=== PATIENT | female | born 1945 | race Caucasian/White ===

== ENCOUNTER → 2017-04-16 13:04 | Outpatient (CLI) | payer MEDICARE, SELFPAY ==
--- NOTE | 2017-04-16 10:15 | CT_ITS ---
STUDY: CT RIGHT SHOULDER REASON FOR EXAM: Female, 72 years old. Shoulder pain following a fall. RADIATION DOSAGE (If Supplied By Facility): CTDIvol = ( 24.58 ) mGy, DLP = ( 542.17 ) mGycm TECHNIQUE: The patient was scanned in a multi detector CT scanner. High resolution transaxial imaging was performed without the administration of intravenous contrast material. Sagittal and coronal images were reconstructed. Individualized dose optimization techniques were used for this CT. COMPARISON: None. FINDINGS: Normal glenohumeral articulation. There is evidence of an avulsion type fracture along the inferior medial aspect of the glenoid. The fracture is displaced medially and inferiorly. There is evidence of a 1.1 cm x 1.2 cm dense calcification in the surgical neck of the right humerus most likely representing a healed bone infarct or chondroid calcification. Normal coracoid process. Normal visualized lateral clavicle. Normal acromioclavicular articulation. There is a Type II morphology (curved), with a neutral orientation. Soft tissue swelling. CT/Coronals Sag Multi Obl 3-D Rec IMPRESSION: Avulsion fracture along the inferior medial aspect of the glenoid with medial and inferior displacement. Findings suggestive of a chondroid calcification or healed bone infarct in the surgical neck of the humerus. Electronically Signed: Kalin Zuluaga MD at 15:05 EST Tel [phone], Service support ,
--- NOTE | 2017-04-16 13:19 | CT_ITS ---
STUDY: CT RIGHT SHOULDER REASON FOR EXAM: Female, 72 years old. Shoulder pain following a fall. RADIATION DOSAGE (If Supplied By Facility): CTDIvol = ( 24.58 ) mGy, DLP = ( 542.17 ) mGycm TECHNIQUE: The patient was scanned in a multi detector CT scanner. High resolution transaxial imaging was performed without the administration of intravenous contrast material. Sagittal and coronal images were reconstructed. Individualized dose optimization techniques were used for this CT. COMPARISON: None. FINDINGS: Normal glenohumeral articulation. There is evidence of an avulsion type fracture along the inferior medial aspect of the glenoid. The fracture is displaced medially and inferiorly. There is evidence of a 1.1 cm x 1.2 cm dense calcification in the surgical neck of the right humerus most likely representing a healed bone infarct or chondroid calcification. Normal coracoid process. Normal visualized lateral clavicle. Normal acromioclavicular articulation. There is a Type II morphology (curved), with a neutral orientation. Soft tissue swelling. CT/Extremity Upper without Contra IMPRESSION: Avulsion fracture along the inferior medial aspect of the glenoid with medial and inferior displacement. Findings suggestive of a chondroid calcification or healed bone infarct in the surgical neck of the humerus. Electronically Signed: Kalin Zuluaga MD at 15:05 EST Tel [phone], Service support ,
== END ==
PROVIDERS: Family Provider Internal Medicine; PCP Internal Medicine; Visit Provider Physician Assistant Surgical
DX: S43.011A Anterior subluxation of right humerus, initial encounter (principal)
CPT/HCPCS: 73200; 76377

== ENCOUNTER 2017-04-19 07:18 | Day surgery (SDC) | payer MEDICARE, SELFPAY ==
--- NOTE | 2017-04-19 07:35 | EKG12_ITS ---
Test Reason : PRE OP Blood Pressure : / mmHG Vent. Rate : 067 BPM Atrial Rate : 067 BPM P-R Int : 178 ms QRS Dur : 086 ms QT Int : 424 ms P-R-T Axes : 053 -56 100 degrees QTc Int : 448 ms Normal sinus rhythm Left anterior fascicular block Left ventricular hypertrophy with repolarization abnormality Poor R wave progression Abnormal ECG Confirmed by CHARI WOODARD, JOSIE ([id number]), communications editor MADISON MAHER ([id number]) on 04/24/2017 2:53:31 PM Referred By: J LUIS Confirmed By:JOSIE MARCELINO MD
[2017-04-19 07:52] VITALS: BP 153/60; PULSE 68; RESP 14; TEMP 36.1; O2SAT 100; BMI 23.8
[2017-04-19 08:10] LABS: Anion Gap 7 (5-15); BUN 14 mg/dL (7-18); BUN/Creat Ratio 17.4 RATIO (10-20); Chloride 104 mmol/L (98-107); EST Glomerular Filtration Rate 75 mL/min (>60); Est Glom Filt Rate - Afr Amer 90 mL/min (>60); Estimated Creatinine Clearance 47.97 ml/min; Glucose 132 mg/dL (70-110); Sodium Level 140 mmol/L (136-145)
[2017-04-19] MEDS: Cefazolin 2 GM in 0.9% Normal Saline 100 ML IV (09:20)
--- NOTE | 2017-04-19 11:45 | PCM.DC.ORTHO ---
Discharge Diet: No Restrictions Discharge Activity: - - sling for comfort, may start pendulum exercises at home, remove sling several times daily in order to move elbow, wrist and hand. May shower in (days): 3 Ice area for (Minutes): 20 Call your doctor if your incision/area has: Continuous Slow Oozing, Sudden Increased Bleeding, Increased Pain/ Swelling, Increased Redness, Foul Smelling Discharge Call your doctor if you observe: Fever of 101 or Higher, Coldness, Increased Pain, Numbness or Tingling, Change in Color Suture Line Care: Avoid Pulling/Pushing Change Dressing in (Days):: 3 Remove Dressing in (days):: 3 Cleanse incision/area with: Soap & Water Allergies/Adverse Reactions: Allergies codeine Adverse Reaction (Verified 04/18/17 17:13) PASSED OUT fluoxetine [From Prozac] Adverse Reaction (Verified 04/18/17 17:13) Other prednisone Adverse Reaction (Verified 04/18/17 17:13) FREQ URINATION, INSOMNIA Medications to take at Discharge Ascorbic Acid/Ascorbate Sodium [Vitamin C 500 mg Wafer] 500 mg PO DAILY 04/18/17 Aspirin [Aspirin, Baby] 81 mg PO DAILY@0800 04/18/17 Calcium Carbonate/Vitamin D3 [Calcium 600 + Vit D Caplet] 1 each PO DAILY 04/18/17 Cholecalciferol (Vitamin D3) [Vitamin D3] 1,000 unit PO DAILY 04/18/17 Duloxetine Hcl [Cymbalta] 30 mg PO DAILY 04/18/17 Lisinopril/Hydrochlorothiazide [Zestoretic 20/12.5 Tablet] 1 tab PO DAILY 04/18/17 Multivit-Min/Iron/Folic/Lutein [Centrum Silver Women Tablet] 1 each PO DAILY 04/18/17 Potassium Chloride 20 meq PO DAILY 04/18/17 Simvastatin 20 mg PO QHS 04/18/17 Vitamin E 400 unit PO DAILY 04/18/17 Please Follow Up With: Bry Krause, When: as scheduled
--- NOTE | 2017-04-19 11:48 | DCINST_ITS ---
Discharge Diet: No Restrictions Discharge Activity: - - sling for comfort, may start pendulum exercises at home , remove sling several times daily in order to move elbow, wrist and hand. May shower in (days): 3 Ice area for (Minutes): 20 Call your doctor if your incision/area has: Continuous Slow Oozing, Sudden Increased Bleeding, Increased Pain/ Swelling, Increased Redness, Foul Smelling Discharge Call your doctor if you observe: Fever of 101 or Higher, Coldness, Increased Pain, Numbness or Tingling, Change in Color Suture Line Care: Avoid Pulling/Pushing Change Dressing in (Days):: 3 Remove Dressing in (days):: 3 Cleanse incision/area with: Soap & Water Allergies/Adverse Reactions: Allergies codeine Adverse Reaction (Verified 04/18/17 17:13) PASSED OUT fluoxetine [From Prozac] Adverse Reaction (Verified 04/18/17 17:13) Other prednisone Adverse Reaction (Verified 04/18/17 17:13) FREQ URINATION, INSOMNIA Medications to take at Discharge Ascorbic Acid/Ascorbate Sodium [Vitamin C 500 mg Wafer] 500 mg PO DAILY Aspirin [Aspirin, Baby] 81 mg PO DAILY@0800 04/18/17 Calcium Carbonate/Vitamin D3 [Calcium 600 + Vit D Caplet] 1 each PO DAILY Cholecalciferol (Vitamin D3) [Vitamin D3] 1,000 unit PO DAILY 04/18/17 Duloxetine Hcl [Cymbalta] 30 mg PO DAILY 04/18/17 Lisinopril/Hydrochlorothiazide [Zestoretic 20/12.5 Tablet] 1 tab PO DAILY Multivit-Min/Iron/Folic/Lutein [Centrum Silver Women Tablet] 1 each PO DAILY 04/04 Potassium Chloride 20 meq PO DAILY 04/18/17 Simvastatin 20 mg PO QHS 04/18/17 Vitamin E 400 unit PO DAILY 04/18/17 Please Follow Up With: Bry Krause, When: as scheduled
[2017-04-19 12:03] VITALS: BP 153/60; BP 157/92; PULSE 99; RESP 15; TEMP 36.1; O2SAT 97
--- NOTE | 2017-04-19 12:03 | OP.PCM_ITS ---
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 Surgery/Procedure Performed:: Diagnostic and operative arthroscopy of the right shoulder with attempted arthroscopic reduction with internal fixation of glenoid fracture followed by attempted anterior labral repair and excision of glenoid fragment and debridement of anterior labrum Description of Surgical Findings:: Fracture anterior inferior glenoid Type of Anesthesia:: General/Regional Anesthesiologist: Saumya Gtz Estimated Blood Loss (mL): 25 Fluids Replaced: See anesthesia report Description of Procedure: Implants Arthrex single loaded suture tacks ?4 Surgical indications please see history and physical dated 04/18/2017 Procedure description: Madelyn was greeted in the preoperative area her right shoulder was marked with surgical marker. Preoperative antibiotics were administered. She was then taken or [address] in stable condition. After adequate anesthesia was obtained and airway was secured she was placed in the lateral decubitus position with a beanbag and an axillary roll. Patient's arm was then prepped draped in usual sterile fashion all bony prominences were well- padded prior to the procedure. Surgical timeout was performed and surgery was commenced. Standard posterior viewing portal was made and 30? arthroscope was introduced into the glenohumeral joint. I made an anterior superior portal as well as a anterior portal just superior to the superior border of the subscapularis. 2 cannulas were placed in anteriorly and these portals. Arthroscopy was performed. This identified the patient had an avulsion off the anterior inferior aspect of the glenoid. This fragment was approximately 8 mm in width of the articular surface and approximately 2 cm in height. Is also of note the patient had severe cartilage loss in the posterior aspect of the humeral head this may be as a direct result of the injury and fall however this also may be primary glenohumeral joint osteoarthritis. This is grade 4 in nature and did cover large aspect of the surface area of the humeral head. Glenoid did have some type II changes superiorly and some type III chondral changes in the anterior aspect of the glenoid. I was able to identify the glenoid fracture and this was able to be manipulated and mobilized. I made a accessory posterior inferior portal. Initially I did attempt to percutaneously place a K wire in the anterior-inferior fragment in order to provisionally fixate this fragment. This was unsuccessful therefore I did attempt to repair this glenoid fragment with a soft tissue repair using labral anchors. I placed a single loaded labral anchor the inferior aspect of the fracture on the glenoid and the superior aspect of the fracture on the glenoid itself. A straight curved suture passer as well as a right angled suture passer was utilized in order to pass a limb of the suture anchor around the inferior border of the fractured fragment as well as the superior border of the fragment. Once this was complete I did tie the inferior suture anchor first unfortunately soft tissue as well as the bone would not hold this and this fixation failed. I then attempted to tie the superior suture tack and this also did not give adequate fixation of the fragment. Patient's bone quality was certainly a question and an issue. Did not feel that performing extensive open reduction internal fixation given the current state of the shoulder would be helpful long-term as the patient has significant cartilage loss and glenohumeral joint osteoarthritis. Given the fact that she will likely require future surgery in the form of adult reconstructive shoulder replacement I decided to remove the anterior-inferior fracture fragment. This was done with the intention of maintaining the soft tissue and performing a labral repair the anterior inferior aspect in order to provide stability. A periosteal elevator was then used to peel off the soft tissue off of the fragment and the fracture fragment was then removed. I then placed 2 additional suture anchors in the anterior aspects of the glenoid at the fracture site. Then used suture pressors once again to pass around the soft tissue of the labrum and even grab some inferior capsule as the patient really did not have any anterior capsule to speak of the could be used for a capsule raphe. The suture limbs were once again passed around the anterior capsule. The anterior inferior aspect of the labrum detached from the inferior portion of the glenoid as this is been tied in the suture anchor also pulled out of the bone of the glenoid. At this point it was determined that anterior labral repair would also be unsuccessful and the labrum was debrided in the field suture anchor was removed. At this point all instruments were removed the incision sites were closed and patient was placed in a sterile dressing and taken to recovery room. Postoperatively: Will initiate pendulum exercises and range of motion exercises immediately patient really has no restrictions other than because of the loss of the anterior inferior glenoid she may have some instability. If the patient remains unstable anteriorly she will require a reverse total shoulder arthroplasty. I will watch her progression closely over the next several weeks and if she has episodes of instability I will refer her to my partner Dr. Vegas for consultation for shoulder replacement surgery. I did discuss this with the patient's at length after the procedure - Admit VTE Documentation VTE Present on Admission: Yes VTE Mechan Device Prophylaxis: SCD's, Thigh High RUBÉN Hose VTE Pharm Prophylaxis ordered?: Yes
[2017-04-19 12:15] VITALS: BP 153/60; BP 159/82; PULSE 95; RESP 16; O2SAT 93
[2017-04-19] MEDS: Ketorolac 15 MG/ML Vial IV (12:25)
[2017-04-19 12:30] VITALS: BP 153/60; BP 176/95; PULSE 91; RESP 16; TEMP 36; O2SAT 96
[2017-04-19 13:47] VITALS: BP 148/88; BP 153/60; PULSE 90; RESP 18; TEMP 36.8; O2SAT 98
== END 2017-04-19 13:49 | disposition home or self-care (01) ==
LOC: SDC 07:19 → AC 07:20
PROVIDERS: Family Provider Internal Medicine; PCP Internal Medicine; Visit Provider Orthopaedic Surgery
PROC: (CPT 29805; principal; 2017-04-19 08:40)
DX: S42.141A Displaced fracture of glenoid cavity of scapula, right shoulder, initial encounter for closed fracture (principal); M19.011 Primary osteoarthritis, right shoulder; I10 Essential (primary) hypertension; E78.00 Pure hypercholesterolemia, unspecified; I34.1 Nonrheumatic mitral (valve) prolapse; F41.9 Anxiety disorder, unspecified; F32.9 Major depressive disorder, single episode, unspecified; W01.0XXA Fall on same level from slipping, tripping and stumbling without subsequent striking against object, initial encounter; Y93.89 Activity, other specified; Y92.008 Other place in unspecified non-institutional (private) residence as the place of occurrence of the external cause; Y99.8 Other external cause status; Z79.82 Long term (current) use of aspirin; Z79.899 Other long term (current) drug therapy
CPT/HCPCS: 01622; 29805; 36415; 80048; 93005; J7120; J2405

== ENCOUNTER 2017-07-02 08:00 | Outpatient (RCR) | payer MEDICARE, SELFPAY ==
--- NOTE | 2017-05-13 08:14 | HP.PTEVAL_ITS ---
Patient's Visit Information NICOLÁS MATIAS is a 72 year old F referred to Physical Therapy by DO DIVYA Alanis with a diagnosis of R displaced glenoid cavity of scapula. Date of Evaluation: 05/09/17 Physical Therapist: Bry Daniels - Visit Plan Frequency: 2-3x /Week Duration: 4-6 Weeks Plan: Start with PROM progressing to AAROM as tolerated. No ER currently. May use modaltities as needed for pain control. Pt. to follow up with physician next week. - Subjective Subjective: Pt. is here today for her initial evaluation with diagnosis of R displaced glenoid cavity of scapula. Pt. fell, tripped over rolls of carpet in home. Pt. went to ER and they did not see fx and was recommended to follow up with ortho if not improving. Pt. follow up with physician and saw displaced fx. Surgery attempted to repair with pinning then attempted to repair labrum, but from what pt. reports were unsuccessful, DOS 04/19/17. Pt. has now been referred to new physician to determine best course of action. In the mean time pt. was referred to PT from ROM, but to avoid ER. Pt. was in sling for comfort, but reports being out of sling most of time at home. Pt. tends to hold arm in gaurded positioning away. Pt. reports having increased pain with all attempts of moving arm, sleeping is difficult, has to slee p proped up. Pt. denies N/T, but does have distal pain down are at times. Pt. is hopeful to increase ROM and get back to workingout again. Pt. reports living a very healthy lifestyle and very active. - Pain R shoulder Pain Intensity (Out of 10): 3 Pain Intensity Range: 1, 6 - Objective POSTURE: Pt. has normal AC joint hieghts. Pt. tends to keep R UE in gaurded positioning at all times. Pt. supports RUE with L. POSTURE: Pt. has well healing incision no signs of infection or redness. Pt has slight rounded shoulders R worse than L. Pt. has increased tenderness to R UT most likely due to compensation. NEUROLOGICAL:Pt. has normal sensation to light and sharp touch throughout bilateral LEs. Pt. has 2+ biceps and triceps DTR bilat. ROM: L shoulder- flexion 180deg, abd 180deg, ext 50deg, functional ER C6, functional IR L1. R shoulder- PROM- flexion 125deg, abd 120deg, scaption 135deg. MMT- LUE - wrist/elbow 5/5 throughout; shoulder- flexion 5/5, abd 5/5, ext 5/5, ER 5/5, IR 5/5. RUE- wrist 5/5 throughotu; elbow- flexon 4+/5, ext 4+/5; shoulder not tested. - Goals Goal 1:: Pt. to be I with HEP. Goal Time Frame: 4-6 Weeks Goal 2:: Pt. to have full PROM of R shoulder into flexion, scaption and abduction allowing for increased tolerance with all functional mobility. Goal Time Frame: 4-6 Weeks Goal 3:: Pt. to sleep throughout the night with 0-2/10 pain in R shoulder allowing for increased quality of life. Goal Time Frame: 4-6 Weeks Goal 4:: Pt. to be able to complete all UB dressing without increase in R shoulder pain. Goal Time Frame: 4-6 Weeks - Rehabilitation Potential Physical Therapy Diagnosis: Pt. has signs and symptoms consistent with R shoulder hypomobility and weakness status post R shoulder fx. Pt. would benefit from PT to increase ROM as tolerated. Pt. is to follow up with new physician next week so POC may change if alternate proccedures are recommended. Rehabilitation Potential: Fair - Anticipated Interventions Patient/Client Instruction: Educate patient on: Condition, Plan of Care, Risk Factors, Benefits of Fitness Program For the Purpose of:: To improve safety, To improve health and function, To foster healthy habits, To improve decision making, To facilitate caregiver knowledge, To improve self management, To prevent re-injury, To improve ability to perform tasks related to life management, To improve tolerance to ADL's Therapeutic Exercise to Include: Postural training, Flexibilty training, Passive ROM, Active ROM For the Purpose of:: To decrease pain, To increase ROM, To improve nutrient delivery to tissue, To improve health of tissue, To decrease soft tissue restriction, To increase flexibility/ROM Manual Therapy Techniques to Include: Passive ROM, Soft tissue mobilization For the Purpose of:: To decrease pain, To increase ROM, To improve nutrient delivery to tissue, To improve health of tissue, To decrease soft tissue restriction, To increase flexibility/ROM IF ES: Yes Cryotherapy (ice pack, ice massage): Yes For the Purpose of:: To decrease pain, To decrease swelling/inflammation, To increase ROM Thank you for the opportunity to evaluate your patient. For Medicare and Medicare HMO plans, please review the plan of care and approve it. It will need to be FAXED BACK to us at [phone] for Medicare purposes. Please let me know if there are questions or concerns regarding this plan of care. Physician Signature: Date:
--- NOTE | 2017-07-02 13:03 | HP.PTREVAL_ITS ---
Bry Krause, DO, It has been my pleasure to treat NICOLÁS MATIAS over the last 15 visits for R displaced glenoid cavity of scapula. Please see the progress note below for an update on the physical therapy plan of care! Subjective: Pt. reports I am doing okay, as long as I do not move it. Pt. reports beign compliant with exercises at home. Pt. reports continued difficulty with lifting her arm above shoulder height. Pt. has difficulty with upper body dressing, ADLs and driving. Objective/Function: PROM- flexion 155deg, abd 140deg, ext 40deg, ER at 90deg 25deg, IR at 90deg 30deg. Pt. has increased pain at all end ranges of motion. AROM- flexion 88deg, abd 69deg, functional ER external auditory meatus, functional IR L5. Pt. continues to have marked pain with all motions, expecially with rotation and overhead. Pt. had tightness throughout all PROM ranges. Pt. has no N/T, but continues to have difficulty with sleeping and most functional mobility with her R UE. Plan Plan: Pt. to follow up with physician and determine best course of action. Goals Goal 1:: Pt. to be I with HEP. Goal Time Frame: 4-6 Weeks Goal Progress: Goal Met Goal 2:: Pt. to have full PROM of R shoulder into flexion, scaption and abduction allowing for increased tolerance with all functional mobility. Goal Time Frame: 4-6 Weeks Goal Progress: Progressing Goal 3:: Pt. to sleep throughout the night with 0-2/10 pain in R shoulder allowing for increased quality of life. Goal Time Frame: 4-6 Weeks Goal Progress: Progressing Goal 4:: Pt. to be able to complete all UB dressing without increase in R shoulder pain. Goal Time Frame: 4-6 Weeks Goal Progress: Progressing Anticipated Interventions Patient/Client Instruction: Educate patient on: Condition, Plan of Care, Risk Factors, Benefits of Fitness Program For the Purpose of:: To improve safety, To improve health and function, To foster healthy habits, To improve decision making, To facilitate caregiver knowledge, To improve self management, To prevent re-injury, To improve ability to perform tasks related to life management, To improve tolerance to ADL's Therapeutic Exercise to Include: Postural training, Flexibilty training, Passive ROM, Active ROM For the Purpose of:: To decrease pain, To increase ROM, To improve nutrient delivery to tissue, To improve health of tissue, To decrease soft tissue restriction, To increase flexibility/ROM Manual Therapy Techniques to Include: Passive ROM, Soft tissue mobilization For the Purpose of:: To decrease pain, To increase ROM, To improve nutrient delivery to tissue, To improve health of tissue, To decrease soft tissue restriction, To increase flexibility/ROM IF ES: Yes Cryotherapy (ice pack, ice massage): Yes For the Purpose of:: To decrease pain, To decrease swelling/inflammation, To increase ROM Please do not hesitate to contact me at [phone] by phone or Fax: if you have questions or concerns regarding this new plan of care! Sincerely, Bry Daniels
--- NOTE | 2017-07-15 13:36 | HP.PT.NRP ---
HP - Discharge Summary (1) - Patient Information NICOLÁS MATIAS was seen in my office for initial evaluation on 05/09/17. The following Plan of Care was established for this patient: Initial Frequency: 2-3x /Week Initial Duration: 4-6 Weeks - Anticipated Interventions Patient/Client Instruction: Educate patient on: Condition, Plan of Care, Risk Factors, Benefits of Fitness Program For the Purpose of:: To improve safety, To improve health and function, To foster healthy habits, To improve decision making, To facilitate caregiver knowledge, To improve self management, To prevent re-injury, To improve ability to perform tasks related to life management, To improve tolerance to ADL's Therapeutic Exercise to Include: Postural training, Flexibilty training, Passive ROM, Active ROM For the Purpose of:: To decrease pain, To increase ROM, To improve nutrient delivery to tissue, To improve health of tissue, To decrease soft tissue restriction, To increase flexibility/ROM Manual Therapy Techniques to Include: Passive ROM, Soft tissue mobilization For the Purpose of:: To decrease pain, To increase ROM, To improve nutrient delivery to tissue, To improve health of tissue, To decrease soft tissue restriction, To increase flexibility/ROM IF ES: Yes Cryotherapy (ice pack, ice massage): Yes For the Purpose of:: To decrease pain, To decrease swelling/inflammation, To increase ROM This patient was last seen in our office 07/02/17. Pertinent comments regarding their Physical therapy will appear below: Pt. was seen for her R shoulder pain after mechanical fall. I talked with patient today and is now scheduled to have R TSA next month. Pt. will be DC from PT at this point in time. At this point I will be discontinuing this patient from physical therapy. I would be happy to see this patient again in the future if found appropriate by the physician. Thank you! Bry Daniels
== END 2017-07-02 19:00 | disposition home or self-care (01) ==
LOC: PT 08:00
PROVIDERS: Family Provider Internal Medicine; PCP Internal Medicine; Visit Provider Orthopaedic Surgery
DX: S42.141D Displaced fracture of glenoid cavity of scapula, right shoulder, subsequent encounter for fracture with routine healing (principal); M19.011 Primary osteoarthritis, right shoulder; S46.011D Strain of muscle(s) and tendon(s) of the rotator cuff of right shoulder, subsequent encounter
CPT/HCPCS: 97110; 97140; 97161

== ENCOUNTER 2017-08-14 05:49 | Inpatient (IN) | payer MEDICARE, SELFPAY ==
[2017-07-31 11:18] VITALS: BP 115/71; PULSE 63; RESP 17; TEMP 36.9; O2SAT 97; BMI 23.8
[2017-07-31 12:08] LABS: Absolute Lymphocyte Count 1.79 X10^3/ul (0.83-4.51); Absolute Neutrophil Count 4.3 X10^3/uL (2.0-7.7); Basophil# 0.01 X10^3/uL; Basophil% 0.2 % (0-1); Eosinophil# 0.05 X10^3/uL; Eosinophils% 0.8 % (0-5); Hematocrit 34.2 % (37-47); Lymphocyte # 1.79 X10^3/ul (4.0); Lymphocyte % 27.1 % (19-41); Mean Corp Hgb Conc 35.1 g/gl (32-36); Mean Corpuscular Hgb 33.9 pg (27.0-32.0); Mean Corpuscular Volume 96.6 fL (81-99); Mean Platelet Vol. 10.7 fl (6.2-12.0); Monocyte# 0.45 X10^3/uL; Monocyte% 6.8 % (0-10); Neutrophil # 4.29 X10^3/uL (2.7-7.7); Neutrophil % 64.9 % (47-70); POSITIVE COUNT NO; POSITIVE DIFFERENTIAL NO; POSITIVE MORPHOLOGY NO; Platelet Count 249 K/mm3 (150-450); RBC Distribution Width CV 12.2 % (11.6-14.6); RBC Distribution Width SD 41.4 fl (35.1-43.9); Red Blood Count 3.54 M/mm3 (4.2-5.4); White Blood Count 6.6 K/mm3 (4.4-11.0)
[2017-07-31 12:32] LABS: Anion Gap 7 (5-15); BUN 13 mg/dL (7-18); Chloride 104 mmol/L (98-107); Creatinine, Serum 0.65 mg/dL (0.55-1.02); EST Glomerular Filtration Rate 95 mL/min (>60); Est Glom Filt Rate - Afr Amer 115 mL/min (>60); Estimated Creatinine Clearance 38.37 ml/min; Glucose 97 mg/dL (74-106); Potassium 3.6 mmol/L (3.5-5.1); Sodium Level 141 mmol/L (136-145)
--- NOTE | 2017-08-01 13:25 | PCM.HP.BLA ---
History and Physical DATE OF SURGERY: 08/14/2017 SCHEDULED PROCEDURE: RIGHT REVERSE TOTAL SHOULDER ARTHROPLASTY HISTORY OF PRESENT ILLNESS: This is a 72-year-old female who is been having right shoulder problem since March 2017. Patient on April 13, 2017 tripped and fell in the garage landing on her right shoulder. Patient was initially seen in the urgent care and referred for orthopedic evaluation. X-rays at that time revealed an inferior glenoid bony Bankart fracture with subluxed right shoulder. Patient underwent a diagnostic and operative arthroscopy of right shoulder with attempted reduction with internal fixation of glenoid fracture followed by attempted anterior labral repair and excision of glenoid fragment and debridement of anterior labrum. Surgery took place on April 19, 2017. Patient has been involved in formal physical therapy and continued to have difficulty with motion. She has not seen any significant relief. She continues to have increased pain in her dominant right shoulder. MRI of the right shoulder was obtained postoperatively. After failing conservative measures and discussing all treatment options with Dr. Guanaco Vegas, the patient would like to proceed with a right reverse total shoulder arthroplasty. Patient currently denies any chest pain, shortness of breath, fevers chills, recent infections. Patient has medical history pertinent for hypertension. REVIEW OF SYSTEMS: ROS: Const: Denies change in appetite, fever,or weight change. CV: Denies chest pain, heart murmur and irregular heartbeat. Resp: Denies cough, pneumonia, SOB, tuberculosis and wheezing. GI: Denies constipation, diarrhea, difficulty swallowing, heartburn, nausea, bloody stools and vomiting. : . (F Genital Sx) Urinary: denies incontinence. Musculo: Denies leg swelling, limp, trouble walking and weakness. Skin: Denies Raynaud's, history of shingles and tattoo. Neuro: Denies ambulatory dysfunction, dizziness, numbness/tingling and tremor. Psych: Reports anxiety, but denies insomnia and stress. Natanael/Lymph: Denies anemia, bleeding/bruising tendency and past transfusion. Reviewed, no changes. PAST MEDICAL HISTORY: Advance Care Plan: Other Directive, POA Effective Date: 04/15/2017 Other Directive, LIVING WILL Effective Date: 04/15/2017 PMH: Medical Problems: High Blood Pressure, Hypercholesterolemia, Osteoporosis Accidents: None Surgical Hx: Gallbladder RT Shoulder ORIF - (04/19/2017) [email or web address] Anesthesia Complications: None Assistive Devices: Glasses Reviewed and updated. SOCIAL HISTORY: SH: Marital: .Occupation: Retired.Work Status: Retired.Hand Dominance: Right-handed. Personal Habits: Cigarette Use: Never Smoked Cigarettes.Alcohol: Occasionally.Drug Use: Denies Use.Enjoy Exercising: Never Exercises. Reviewed, no changes. VITALS: Ht: 61 Wt: 124lb Wt k.246 BMI: 23.4 BP: 100/60 Pulse: 62 Resp: 16 T: 98.0 T: 36.7C ALLERGIES: Prozac Codeine MEDICATIONS: Aspirin 81 mg 1po qday, Potassium 20 Meq 1 tab PO daily, Simvastatin 20 mg 1po qday, Vitamin C 500 mg 1po qday, Vitamin E 500 Units 1po qday, Lisinopril-Hydrochlorothiazide 20-12.5 mg 1 by mouth every day, Tinactin 1 % apply to affected area twice daily, Cymbalta 30 mg 1 by mouth every day, Flonase Allergy Relief 50 mcg/Act twice a day, Calcium Carbonate 600 mg one PO daily PRE-OP EXAM: General appearance:NORMAL Other: Eyes: Conjunctivae and lids: NORMAL Pupils: ERR Ears, Nose, Mouth, and Throat: NORMAL Other: Inspection of lips, teeth and gums: NORMAL Other: Neck: Examination of neck: no masses noted. Respiratory: Assessment of respiratory effort: NORMAL Other: Auscultation of lungs: clear to auscultation no wheezes, rhonchi or rales. Cardiovascular: Auscultation of heart: regular rate and rhythm, no murmurs, gallops or rubs. Exam of carotid arteries: NORMAL Other: Gastrointestinal: Exam of abdomen: soft, nontender, nondistended bowel sounds present. PHYSICAL EXAMINATION: Examination of the right shoulder reveals previous incisions well-healed without erythema or signs of infection. Patient has passive forward elevation of 50?. Internal rotation to trochanter, external rotation to 25?. Patient does have active deltoid function. Axillary sensation is intact. IMAGING STUDIES: MRI of the right shoulder was obtained on July 16, 2017 which shows regions of interstitial and articular surface partial thickness tearing up to 25% dept involving the mid to distal supraspinatus. Impaction fracture deformity and Hill-Sachs impaction with contusion deformity of as well as anterior inferior labral tearing and maceration. . IMPRESSION: 1. Previous dislocation with bony Bankart fracture with previous arthroscopic surgery 2. Hypertension 3. Hypercholesterolemia 4. Osteoporosis PLAN: Dr. Vegas did discuss and review with the patient all treatment options including surgical versus nonsurgical. Patient wishes to proceed with above-stated procedure. Potential risks, benefits, and complications of this procedure were discussed in detail including but not limited to , infection, nerve and blood vessel damage, persistent pain, numbness, tingling, paresthesias, blood clot, pulmonary embolism, and requirement for further surgery. The patient expressed full understanding has no further questions for the doctor. Patient does agree to proceed with the above-stated procedure and has signed the surgery consent form. We are obtaining surgical clearance from patient's primary care physician. ___ I have re-examined the patient. There are no clinical changes since date of exam. ___ See progress notes for changes. ___ Dictated on admission Date: Time: Signature:
--- NOTE | 2017-08-01 13:41 | HP.PCM_ITS ---
History and Physical DATE OF SURGERY: 08/14/2017 SCHEDULED PROCEDURE: RIGHT REVERSE TOTAL SHOULDER ARTHROPLASTY HISTORY OF PRESENT ILLNESS: This is a 72-year-old female who is been having right shoulder problem since March 2017. Patient on April 13, 2017 tripped and fell in the garage landing on her right shoulder. Patient was initially seen in the urgent care and referred for orthopedic evaluation. X-rays at that time revealed an inferior glenoid bony Bankart fracture with subluxed right shoulder. Patient underwent a diagnostic and operative arthroscopy of right shoulder with attempted reduction with internal fixation of glenoid fracture followed by attempted anterior labral repair and excision of glenoid fragment and debridement of anterior labrum. Surgery took place on April 19, 2017. Patient has been involved in formal physical therapy and continued to have difficulty with motion. She has not seen any significant relief. She continues to have increased pain in her dominant right shoulder. MRI of the right shoulder was obtained postoperatively. After failing conservative measures and discussing all treatment options with Dr. Guanaco Vegas, the patient would like to proceed with a right reverse total shoulder arthroplasty. Patient currently denies any chest pain, shortness of breath, fevers chills, recent infections. Patient has medical history pertinent for hypertension. REVIEW OF SYSTEMS: ROS: Const: Denies change in appetite, fever,or weight change. CV: Denies chest pain, heart murmur and irregular heartbeat. Resp: Denies cough, pneumonia, SOB, tuberculosis and wheezing. GI: Denies constipation, diarrhea, difficulty swallowing, heartburn, nausea, bloody stools and vomiting. : . (F Genital Sx) Urinary: denies incontinence. Musculo: Denies leg swelling, limp, trouble walking and weakness. Skin: Denies Raynaud's, history of shingles and tattoo. Neuro: Denies ambulatory dysfunction, dizziness, numbness/tingling and tremor. Psych: Reports anxiety, but denies insomnia and stress. Natanael/Lymph: Denies anemia, bleeding/bruising tendency and past transfusion. Reviewed, no changes. PAST MEDICAL HISTORY: Advance Care Plan: Other Directive, POA Effective Date: 04/15/2017 Other Directive, LIVING WILL Effective Date: 04/15/2017 PMH: Medical Problems: High Blood Pressure, Hypercholesterolemia, Osteoporosis Accidents: None Surgical Hx: Gallbladder RT Shoulder ORIF - (04/19/2017) [email or web address] Removed Anesthesia Complications: None Assistive Devices: Glasses Reviewed and updated. SOCIAL HISTORY: SH: Marital: .Occupation: Retired.Work Status: Retired.Hand Dominance: Right- handed. Personal Habits: Cigarette Use: Never Smoked Cigarettes.Alcohol: Occasionally.Drug Use: Denies Use.Enjoy Exercising: Never Exercises. Reviewed, no changes. VITALS: Ht: 61 Wt: 124lb Wt k.246 BMI: 23.4 BP: 100/60 Pulse: 62 Resp: 16 T: 98.0 T: 36.7C ALLERGIES: Prozac Codeine MEDICATIONS: Aspirin 81 mg 1po qday, Potassium 20 Meq 1 tab PO daily, Simvastatin 20 mg 1po qday, Vitamin C 500 mg 1po qday, Vitamin E 500 Units 1po qday, Lisinopril- Hydrochlorothiazide 20-12.5 mg 1 by mouth every day, Tinactin 1 % apply to affected area twice daily, Cymbalta 30 mg 1 by mouth every day, Flonase Allergy Relief 50 mcg/Act twice a day, Calcium Carbonate 600 mg one PO daily PRE-OP EXAM: General appearance:NORMAL Other: Eyes: Conjunctivae and lids: NORMAL Pupils: ERR Ears, Nose, Mouth, and Throat: NORMAL Other: Inspection of lips, teeth and gums: NORMAL Other: Neck: Examination of neck: no masses noted. Respiratory: Assessment of respiratory effort: NORMAL Other: Auscultation of lungs: clear to auscultation no wheezes, rhonchi or rales. Cardiovascular: Auscultation of heart: regular rate and rhythm, no murmurs, gallops or rubs. Exam of carotid arteries: NORMAL Other: Gastrointestinal: Exam of abdomen: soft, nontender, nondistended bowel sounds present. PHYSICAL EXAMINATION: Examination of the right shoulder reveals previous incisions well-healed without erythema or signs of infection. Patient has passive forward elevation of 50?. Internal rotation to trochanter, external rotation to 25?. Patient does have active deltoid function. Axillary sensation is intact. IMAGING STUDIES: MRI of the right shoulder was obtained on July 16, 2017 which shows regions of interstitial and articular surface partial thickness tearing up to 25% dept involving the mid to distal supraspinatus. Impaction fracture deformity and Hill-Sachs impaction with contusion deformity of as well as anterior inferior labral tearing and maceration. . IMPRESSION: 1. Previous dislocation with bony Bankart fracture with previous arthroscopic surgery 2. Hypertension 3. Hypercholesterolemia 4. Osteoporosis PLAN: Dr. Vegas did discuss and review with the patient all treatment options including surgical versus nonsurgical. Patient wishes to proceed with above- stated procedure. Potential risks, benefits, and complications of this procedure were discussed in detail including but not limited to , infection , nerve and blood vessel damage, persistent pain, numbness, tingling, paresthesias, blood clot, pulmonary embolism, and requirement for further surgery. The patient expressed full understanding has no further questions for the doctor. Patient does agree to proceed with the above-stated procedure and has signed the surgery consent form. We are obtaining surgical clearance from patient's primary care physician. ___ I have re-examined the patient. There are no clinical changes since date of exam. ___ See progress notes for changes. ___ Dictated on admission Date: Time: Signature:
[2017-08-14] VITALS (9 sets, daily range): BP systolic 137–170; BP diastolic 50–82; PULSE 45–97; RESP 16–18; TEMP 36.2–37; O2SAT 96–99; BMI 23.8
[2017-08-14] MEDS: Celecoxib 200 MG Capsule 400 MG PO (06:35)
[2017-08-14] MEDS: Acetaminophen 500 MG Tablet 1000 MG PO ×2 (06:35→21:25)
[2017-08-14] MEDS: oxyCODONE HCl Cr 10 MG Tablet PO (06:35)
[2017-08-14] MEDS: Cefazolin 2 GM in 0.9% Normal Saline 100 ML IV (08:05)
--- NOTE | 2017-08-14 09:13 | PCM.OPRPT ---
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 Surgery/Procedure Performed:: Right reverse total shoulder replacement Description of Surgical Findings:: Stable shoulder with good tensioning There was 20% loss of anterior inferior glenoid, with anterior-inferior glenoid wear and complete cartilage erosion about the anterior inferior glenoid and humeral head funeral director/embalmer/owner: Crystal Thornton Type of Anesthesia:: General Anesthesiologist: Rafael Collado Special Medications: 2 g Ancef, 1 g TXA at incision, 1 g TXA closure, 10 mg Decadron, joint cocktail (5 mg Duramorph, 30 mL of 0.5% Ropivicaine, 1000 units of epinephrine, 30 mg of Toradol) 1 g vancomycin Specimen's removed: Bony cuts Estimated Blood Loss (mL): 150 Fluids Replaced: 1000 milliliters crystalloid Description of Procedure: Components used 1. Equinox glenoid baseplate from [employer] for reverse TSA 2. Equinox 36mm Glenosphere 3. Equinox 36mm, 0mm humeral liner 4. Equinox reverse TSA humeral adapter tray 0mm 5. Equinox humeral stem primary press-fit preserve 10 mm size Brief history/Operative indications: 72 yo f with history of right shoulder instability with large bony Bankart. Patient had a failed arthroscopic repair the bony Bankart. She remained unstable with progression of osteoarthritis and shoulder pain. Patient failed conservative measures as mentioned in the H&P. After discussion of risk and benefits of reverse total shoulder replacement including but not limited to blood loss, DVTs, PEs, nerve vessel damage, infection, general risk of anesthesia including loss of life, instability and stiffness patient demonstrating understanding wish to proceed was able to sign informed consent. Medical clearance was obtained. Procedure: On the date of the procedure, patient's R upper extremity was marked in the preoperative area. Patient was taken back to the operating room where they were placed on the table in the supine position. Anesthesia assumed control of the C-spine and airway, then administered anesthetic. All bony prominences were identified well-padded, the head was secured and the patient was placed in the beachchair position at about 35? inclination. Anesthesia remained in control of the C-spine airway throughout the remainder of the procedure. Patient was then appropriately fastened to the table and the R upper extremity was prepped in a sterile fashion. The surgeons then scrubbed. Upon reentering the room, the R upper extremity was draped in a sterile fashion and the incision was marked out. Timeout was called, everyone agreed upon the side, the site, the procedure to be performed, patient identity and antibiotics given. Incision was taken down through skin and subcutaneous tissue, fat down to fascia. The stripe of the deltopectoral interval and cephalic vein were identified and blunt dissection was used to retract the deltoid. The cephalic vein was retracted laterally. Clavipectoral fascia was then incised and a cobra retractor was placed in the wound. The proximal one third of the pectoralis major insertion was released. Pectoralis tendon insertion was used to tenodesed the biceps tendon which was identified in the bicipital groove. Tenodesis was done with #1 Vicryl. Proximally we followed the biceps tendon after transecting it into the rotator interval. The rotator interval was split and the arm was externally rotated. The split was 1 cm medial to the bicipital groove. Subscapularis tendon was released. We released down the anterior portion of the humeral head and a evans elevator was used to release the inferior portion of the humeral head. The arm was externally rotated and the shoulder was dislocated. The [employer] humeral head cutting guide was used to make humeral cut. This was done at 20? retroversion. Once his humeral head cut was made humerus was retracted out of the way and the glenoid was exposed. After exposing the glenoid, the labrum and the remaining proximal biceps were debrided. At this time we are able to view the entire outer edge of the glenoid. A central pin was placed we sequentially reamed over this central pin to 36mm. Once this was completed the central pedicle was drilled. The glenoid baseplate was impacted into place. Wound was closely irrigated out with normal saline we then drilled sequentially for 4 screws. Screws were placed superiorly and inferiorly and tightened down the screws. Then anteriorly and posteriorly. Once the screws were appropriately tightened into place the glenoid baseplate was compressed against the exposed subchondral bone. Locking caps were placed and a 36mm glenosphere was impacted into place engaging the Contreras taper. The central screw was then tightened into place. Attention was then turned towards the humerus. The humerus was again externally rotated exposing the proximal portion of the humerus. Central canal finder was then used to open up the canal. We then broached to a 10mm stem. We trialed the 0mm liner, with the 0mm humeral baseplate. We obtained an adequate reduction at this time with a nice stable shoulder. Good internal rotation to the gluteus, forward elevation to 140?, external rotation to 20?. Final components were then assembled on the back table, trials were removed and the wound was copiously irrigated with normal saline after dislocating the shoulder. Once the final components were assembled they were impacted into place. Shoulder was then reduced and found to be stable with good range of motion. Subscapularis tendon was not repairable. The wound was then copiously irrigated out with a 1 L normal saline lavage. The deltopectoral fascia was then closed using #1 Vicryl skin was closed using 2-0 Vicryl interrupted sutures and final skin closure was done with 3-0 Monocryl. Steri-Strips are placed for final skin closure. Sterile dressing was placed patient was then placed in a sling and awakened by anesthesia. Patient was then transferred to the PACU for recovery. Postoperative plan: Patient will be admitted to the hospital overnight. They will get physical therapy starting in 2 weeks with normal postoperative regimen. Patient will be placed on 325 mg daily for DVT prophylaxis. The first postoperative appointment will be in 2 weeks for wound check and initiation of phase 1 physical therapy. Grafts/Implants Used: Equinox preserve stem - Complications None - Admit VTE Documentation VTE Present on Admission: No VTE Mechan Device Prophylaxis: SCD's VTE Pharm Prophylaxis ordered?: Yes
--- NOTE | 2017-08-14 09:47 | RAD_ITS ---
STUDY: X-RAY - RIGHT SHOULDER REASON FOR EXAM: Female, 72 years old. Total shoulder replacement TECHNIQUE: Single frontal view(s) of the shoulder. COMPARISON: None. FINDINGS: The patient is status post right reverse shoulder replacement. There is good alignment. Postoperative soft tissue changes. RAD/Shoulder One View IMPRESSION: Status post right reverse shoulder replacement. There is good alignment. Postoperative soft tissue changes. Electronically Signed: Kalin Zuluaga MD at 14:25 EDT Tel [phone], Service support ,
[2017-08-14] MEDS: Ondansetron 4 MG/2 ML Vial IV ×2 (11:01→19:27)
[2017-08-14] MEDS: 0.9% NaCl Peripheral Flush Adult/Peds IV (11:01)
[2017-08-14] MEDS: Cefazolin 1 GM/50 ML BAG IV (17:06)
[2017-08-14] MEDS: Miconazole Nitrate Cream 1 APPLIC TOPICAL (18:06)
[2017-08-14] MEDS: oxyCODONE 5 MG Tablet PO (21:24)
[2017-08-14] MEDS: DULoxetine Hcl 30 MG Capsule PO (21:25)
[2017-08-14] MEDS: Atorvastatin Calcium 10 MG Tablet PO (21:26)
[2017-08-15] MEDS: Cefazolin 1 GM/50 ML BAG IV (00:06)
[2017-08-15] MEDS: Ketorolac 15 MG/ML Vial IV ×2 (00:14→07:52)
[2017-08-15 02:32] VITALS: BP 135/53; PULSE 69; RESP 16; TEMP 36.9; O2SAT 97
[2017-08-15] MEDS: oxyCODONE 5 MG Tablet PO ×3 (02:41→14:50)
--- NOTE | 2017-08-15 06:34 | PN.ORTHO_ITS ---
Subjective: The patient was sitting in bed upon examination. Patient denies any chest pain , shortness of breath, dizziness, lightheadedness, nausea or vomiting, or calf pain. Pain is controlled on medications. No adverse overnight events. Patient did have some nausea yesterday but is improved today. Overall patient is doing well and plan is for discharge home today. Patient does have achiness/ soreness in the right shoulder but pain is been controlled. Objective: Dressing is C/D/I Ultra-sling fitting appropriately Sensation intact to axillary, radial, median, and ulnar distribution Motor intact to AIN, PIN, and ulnar nerve - Physical Exam General: Alert, Oriented x3, Cooperative, No apparent distress Vital Signs Temp Pulse Resp BP Pulse Ox 98.5 F 69 16 135/53 H 97 08/15/17 02:32 08/15/17 02:32 08/15/17 02:32 08/15/17 02:32 08/15/17 02:32 Oxygen Delivery Method Room Air Weight: 57.1 kg Body Mass Index (BMI) 23.8 Intake and Output for Last 24 Hours 08/13/17 08/14/17 08/15/17 23:59 23:59 23:59 Intake Total 1550 / 1550 850 / 850 Output Total 400 / 400 720 / 720 Balance 1150 / 1150 130 / 130 Medical Necessity - Tobacco Use Smoking Status: Never smoker Assessment/Plan 1. S/P right reverse total shoulder arthroplasty POD #1 2. Continue Pain Medications: Tylenol and OxyIR 3. DVT Prophylaxis: Aspirin 325 mg daily 4. PT/OT: Okay for elbow/wrist/hand and pendulum exercises. Otherwise patient will begin outpatient physical therapy after 2 week follow-up at [facility]. 5. Encouraged Incentive Spirometry 6. Disposition: Orthopedically stable, plan is for discharge home today. Prescriptions will be E scribed to [facility]. Patient will follow-up per postop instructions.
[2017-08-15] MEDS: Acetaminophen 500 MG Tablet 1000 MG PO ×2 (06:38→13:10)
--- NOTE | 2017-08-15 06:38 | PCM.DC.ORTHO ---
Discharge Diet: No Restrictions Discharge Activity: May Not Drive May shower in (days): 1 - Turned dressing away from water Ice area for (Minutes): 20 - Ice area for 20 minutes each hour while awake Weight Bearing Status: No weight bearing - Right upper extremity Keep extremity elevated above heart level: Operative Extremity Call your doctor if your incision/area has: Continuous Slow Oozing, Sudden Increased Bleeding, Increased Pain/ Swelling, Increased Redness, Foul Smelling Discharge Call your doctor if you observe: Fever of 101 or Higher, Coldness, Increased Pain, Numbness or Tingling, Change in Color Remove Dressing in (days):: 4 - Okay to remove dressing on August 19, 2017 Additional Instructions: Follow-up per [facility] postop instructions Do not take 81 mg aspirin while taking full dose 325 mg aspirin for the next 2 weeks Allergies/Adverse Reactions: Allergies codeine Adverse Reaction (Verified 07/31/17 11:08) PASSED OUT fluoxetine [From Prozac] Adverse Reaction (Verified 07/31/17 11:08) Other prednisone Adverse Reaction (Verified 07/31/17 11:08) FREQ URINATION, INSOMNIA Medications to take at Discharge Calcium Carbonate/Vitamin D3 [Calcium 600-Vit D3 400 Caplet] 1 ea PO DAILY 04/18/17 Cholecalciferol (Vitamin D3) [Vitamin D3] 1,000 unit PO DAILY 04/18/17 Duloxetine Hcl [Cymbalta] 30 mg PO QHS 04/18/17 Lisinopril/Hydrochlorothiazide [Zestoretic 20/12.5 Tablet] 1 tab PO DAILY 04/18/17 Multivit-Min/Iron/Folic/Lutein [Centrum Silver Women Tablet] 1 ea PO DAILY 04/18/17 Potassium Chloride 20 meq PO DAILY 04/18/17 Simvastatin 20 mg PO QHS 04/18/17 Vitamin E 400 unit PO DAILY 04/18/17 Ascorbic Acid [Vitamin C] 500 mg PO DAILY 07/31/17 Tolnaftate [Tinactin] 30 gm TP DAILY 07/31/17 Acetaminophen [Tylenol] 1,000 mg PO Q8 #90 tab 08/15/17 Aspirin 325 mg PO DAILY@0800 #14 tab 08/15/17 Famotidine [Pepcid] 20 mg PO DAILY #14 tab 08/15/17 Oxycodone [Oxyir] 5 - 10 mg PO Q4H PRN PRN 5 Days #60 tablet 08/15/17 The following prescriptions were given: Oxycodone [Oxyir] 5 - 10 mg PO Q4H PRN PRN 5 Days #60 tablet PRN Reason: Pain Acetaminophen [Tylenol] 1,000 mg PO Q8 #90 tab Aspirin 325 mg PO DAILY@0800 #14 tab Famotidine [Pepcid] 20 mg PO DAILY #14 tab Primary Care Physician: Susan Potter MD [Primary Care Provider] - Please Follow Up With: Guevara Armstrong PA-C When: 08/27/17 @ 9:15 am
[2017-08-15] MEDS: 0.9% NaCl Peripheral Flush Adult/Peds IV (07:53)
[2017-08-15 07:58] VITALS: BP 143/74; PULSE 70; RESP 18; TEMP 37.1; O2SAT 95
[2017-08-15] MEDS: Ascorbic Acid 500 MG Tablet PO (08:01)
[2017-08-15] MEDS: Famotidine 20 MG Tablet PO (08:01)
[2017-08-15] MEDS: Multivitamins,Ther W-Minerals Tablet 1 TABLET PO (08:01)
[2017-08-15] MEDS: Aspirin 325 MG Tablet PO (08:01)
[2017-08-15] MEDS: Calcium Carb/Vitamin D 1 TABLET Tablet PO (08:01)
[2017-08-15] MEDS: HYDROCHLOROTHIAZIDE 12.5 MG CAPSULE PO (08:02)
[2017-08-15] MEDS: Lisinopril 20 MG Tablet PO (08:02)
--- NOTE | 2017-08-15 10:30 | NURSING ---
pt c/o lightheadedness/dizziness when up to [facility] with therapy around 1030. Assisted back to bed safely in supine position. BP checked at 120/52. Pt feeling better once in bed.
--- NOTE | 2017-08-15 11:15 | CASEMGMT ---
[facility] Face to Face with patient for initial transition planning/care coordination assessment. RN CM introduced self and role at [facility]. Patient sitting in chair, alert and oriented. Patient willing to participate in assessment and is able to answer all questions appropriately. Care providers, pharmacy, and demographics verified. Patient lives with in a ranch style home with 2 steps to enter home. will be providing transportation. Patient wishes to discharge home, denies need for home health or DME at this time. Patient states she has no further needs or concerns at this time. CM to follow for discharge planning needs that may arise. Disposition Plan: Patient to discharge home with family support and follow-up plans in place.
[2017-08-15 13:15] VITALS: BP 120/50; PULSE 76; RESP 18; TEMP 36.9; O2SAT 97
[2017-08-15 15:25] VITALS: BP 120/50; PULSE 76; RESP 18; TEMP 36.9; O2SAT 97
== END 2017-08-15 15:30 | disposition home or self-care (01) | DRG 483 ==
PROVIDERS: Admitting Provider Specialist; Family Provider Internal Medicine; PCP Internal Medicine; Visit Provider Specialist
PROC: 0RRJ00Z Replacement of Right Shoulder Joint with Reverse Ball and Socket Synthetic Substitute, Open Approach (ICD-10-PCS; CPT 23472; principal; 2017-08-14 07:30)
DX: M19.211 Secondary osteoarthritis, right shoulder (principal)
CPT/HCPCS: 73020; 80048; 85025; 87081; 97166; 97530; C1713; C1776; J7120; A4216; J2405

== ENCOUNTER 2018-01-03 08:00 | Outpatient (RCR) | payer MEDICARE, SELFPAY ==
--- NOTE | 2017-08-28 11:33 | HP.PTEVAL ---
Patient's Visit Information NICOLÁS MATIAS is a 72 year old F referred to Physical Therapy by Alberto Vegas MD with a diagnosis of Reverse Total Shoulder. Date of Evaluation: 08/28/17 Physical Therapist: Sierra Garza - Visit Plan Frequency: 2x /Week Duration: 4 Weeks Plan: Reverse Total Shoulder 08/14. 2 weeks post op- phase I PROM with initiate early pase II Arom advancing as tolerated, hold phase III until 6 weeks post op- At 6 weeks d/c sling and begin phase III---- no limits on ROM - Subjective Subjective: Fell and had her first right shoulder Apr 19 2017 which was not successful so she ended up with reverse total shoulder 08/[address] Vegas at [facility]. Saw the MD yesterday they were happy with progress and tooke out sutures and told her to wear the sling for the next 4 weeks at all times except when in therapy. Takes it off 4x a day at home to do exercises. Worst: 10 stinging pain and then it was good Best: 03/27 Agg: being more active Eases: ice and pain meds as needed. No radiating pain into the neck or arm. No N/T in the fingers. No AQUINO, blurred vision or dizziness. Right hand dominate. Has a who helps at home. PMHx/Meds no change since hosptialization. Work: no retired but has been coming in to exercsises 3-4 times a week. Very active. Sleep:not disturbed. - Objective Posture: FH, RS- guarding of the right UE with an ultrasling on. Gait: limited arm swing secondary to sling. Palpation: not tender throughout shoulder/UE. Observation: incision covered with steri-strips- no s/s of infection. ROM: Cervical: WNL, PROM: Shoulder: flexion- 105 degrees, abd: 115 degrees, IR: 30 degrees ER: neutral. Elbow/Wrist/Hand: WFL- discomfort at end range extn of the elbow. Strength: not tested secondary to protocol. Sensation: grossly intact - Goals Goal 1:: Patient will be I with HEP and progression Goal Time Frame: 4-6 Weeks Goal 2:: Patient will demo full AROM progressing through the phases as appropriate per protocol Goal Time Frame: 4-6 Weeks Goal 3:: Patient will demo 4+/5 strength in shoulder progressing through the phases as appropriate per protocol Goal Time Frame: 4-6 Weeks Goal 4:: Patient will report 0/10 pain Goal Time Frame: 4-6 Weeks - Rehabilitation Potential Physical Therapy Diagnosis: Patient presents with hypomobility- she has decreased ROM, strength and muscular endurance s/p reverse total shoulder. Rehabilitation Potential: Fair - Anticipated Interventions Patient/Client Instruction: Educate patient on: Benefits of Fitness Program For the Purpose of:: To improve ability to perform ADL's Therapeutic Exercise to Include: Strength training, Endurance training, Body mechanics, Postural training, Passive ROM, Active ROM, Scapular Strength/Stabilization For the Purpose of:: To increase ROM, To improve muscle performance and motor function Manual Therapy Techniques to Include: Passive ROM For the Purpose of:: To increase ROM TENS: Yes Cryotherapy (ice pack, ice massage): Yes Thermo therapy (hot pack): Yes Ultrasound (thermal/non thermal): No For the Purpose of:: To decrease pain Thank you for the opportunity to evaluate your patient. For Medicare and Medicare HMO plans, please review the plan of care and approve it. It will need to be FAXED BACK to us at [phone] for Medicare purposes. Please let me know if there are questions or concerns regarding this plan of care. Physician Signature: Date:
--- NOTE | 2017-09-23 08:26 | HP.PTREVAL_ITS ---
Alberto Vegas MD, It has been my pleasure to treat NICOLÁS MATIAS over the last 9 visits for Reverse Total Shoulder. Please see the progress note below for an update on the physical therapy plan of care! Subjective: Patient reports that the shoulder is slow to get better- she knows there are movements that she can't do. Pain is mostly dull and achy. Pain at the worst is 2/10 but most of the time she is painfree. Goes back to MD on which will be 6 weeks. Wears the sling all the time including sleeping. Takes if off when she is relaxing at home. Objective/Function: Posture: FH, RS- guarding of the right UE with an ultrasling on. Gait: limited arm swing secondary to sling. Palpation: mild tenderness over incision. Observation: healing well- no s/s of infection. ROM : Cervical: WNL, PROM: Shoulder: flexion- 140 degrees, abd: 165 degrees, IR: 30 degrees ER: neutral. Elbow/Wrist/Hand: WFL- discomfort at end range extn of the elbow. Strength: not tested secondary to protocol. Sensation: grossly intact Plan Plan: Cont with POC Goals Goal 1:: Patient will be I with HEP and progression Goal Time Frame: 4-6 Weeks Goal Progress: Progressing Goal 2:: Patient will demo full AROM progressing through the phases as appropriate per protocol Goal Time Frame: 4-6 Weeks Goal Progress: Progressing Goal 3:: Patient will demo 4+/5 strength in shoulder progressing through the phases as appropriate per protocol Goal Time Frame: 4-6 Weeks Goal 4:: Patient will report 0/10 pain Goal Time Frame: 4-6 Weeks Goal Progress: Progressing Anticipated Interventions Patient/Client Instruction: Educate patient on: Benefits of Fitness Program For the Purpose of:: To improve ability to perform ADL's Therapeutic Exercise to Include: Strength training, Endurance training, Body mechanics, Postural training, Passive ROM, Active ROM, Scapular Strength/ Stabilization For the Purpose of:: To increase ROM, To improve muscle performance and motor function Manual Therapy Techniques to Include: Passive ROM For the Purpose of:: To increase ROM TENS: Yes Cryotherapy (ice pack, ice massage): Yes Thermo therapy (hot pack): Yes Ultrasound (thermal/non thermal): No For the Purpose of:: To decrease pain Please do not hesitate to contact me at [phone] by phone or Fax: if you have questions or concerns regarding this new plan of care! Sincerely, Sierra Garza
--- NOTE | 2017-10-29 08:41 | HP.PTREVAL ---
Alberto Vegas MD, It has been my pleasure to treat NICOLÁS MATIAS over the last 18 visits for Reverse Total Shoulder. Please see the progress note below for an update on the physical therapy plan of care! Subjective: Patient reports that she is getting better- she did something and tweaked her shoulder but its getting better- pain is mostly around the incision. She is sleeping through the night except for her bathroom breaks and is using her right arm a lot more at home. She feels that she is 80% better and goes back to the MD next week Objective/Function: Posture: FH, RS- no guarding of the right upper extremity- does not wear sling anymore. Gait: no limitations with arm swing and trunk rotation. Palpation: mild tenderness over incision. Observation: healing well- no s/s of infection. ROM: Cervical: WNL, AROM: Shoulder: flexion- 120 degrees with compensation, abd: 110 degrees with compensation, IR: to pocket ER: neutral. Elbow/Wrist/Hand: WFL. Strength: 4/5 isometric at neutral. Sensation: grossly intact Plan Plan: Continue 2x a week for 4 weeks with progression through protocol Goals Goal 1:: Patient will be I with HEP and progression Goal Time Frame: 4-6 Weeks Goal Progress: Progressing Goal 2:: Patient will demo full AROM progressing through the phases as appropriate per protocol Goal Time Frame: 4-6 Weeks Goal Progress: Progressing Goal 3:: Patient will demo 4+/5 strength in shoulder progressing through the phases as appropriate per protocol Goal Time Frame: 4-6 Weeks Goal 4:: Patient will report 0/10 pain Goal Time Frame: 4-6 Weeks Goal Progress: Progressing Anticipated Interventions Patient/Client Instruction: Educate patient on: Benefits of Fitness Program For the Purpose of:: To improve ability to perform ADL's Therapeutic Exercise to Include: Strength training, Endurance training, Body mechanics, Postural training, Passive ROM, Active ROM, Scapular Strength/Stabilization For the Purpose of:: To increase ROM, To improve muscle performance and motor function Manual Therapy Techniques to Include: Passive ROM For the Purpose of:: To increase ROM TENS: Yes Cryotherapy (ice pack, ice massage): Yes Thermo therapy (hot pack): Yes Ultrasound (thermal/non thermal): No For the Purpose of:: To decrease pain Please do not hesitate to contact me at [phone] by phone or if you have questions or concerns regarding this new plan of care! Sincerely, Sierra Garza
--- NOTE | 2017-12-06 09:54 | HP.PTREVAL_ITS ---
Alberto Vegas MD, It has been my pleasure to treat NICOLÁS MATIAS over the last 26 visits for Reverse Total Shoulder. Please see the progress note below for an update on the physical therapy plan of care! Subjective: Pt. reports overall doing pretty well. Current pain 1/10 around incision, worst pain 1/10. best pain 0/10. Occasional numbness in wrist. Activities: No difficulty with minor recreation activities. Moderate difficulty with ADL. Goal continue to be able to reach behind back while showering. Able to drive. Notices shoulder flexed during daily activities such as eating. Pt. would like to cont. with PT. Objective/Function: Gait: WFL. Posture: R elbow remains flexed as shoulder rests in slighly abducted position while seated. AROM: R shoulder flex: 130 deg , abd. 120 deg, ext. 49 deg, IR reach to ipsilat. pocket. Elbow WNL. Strength : L UE 5/5 throughout. R shoulder flex: 3+/5, abd. 3+/5, ext. 4/5, IR 5/5, ER 4 /5. R Elbow flex 5/5. Plan Plan: Cont. PT services for 4 weeks. Goals Goal 1:: Patient will be I with HEP and progression Goal Time Frame: 4-6 Weeks Goal Progress: Progressing Goal 2:: Patient will demo full AROM progressing through the phases as appropriate per protocol Goal Time Frame: 4-6 Weeks Goal Progress: Progressing Goal 3:: Patient will demo 4+/5 strength in shoulder progressing through the phases as appropriate per protocol Goal Time Frame: 4-6 Weeks Goal Progress: Progressing Goal 4:: Patient will report 0/10 pain Goal Time Frame: 4-6 Weeks Goal Progress: Progressing Anticipated Interventions Patient/Client Instruction: Educate patient on: Benefits of Fitness Program For the Purpose of:: To improve ability to perform ADL's Therapeutic Exercise to Include: Strength training, Endurance training, Body mechanics, Postural training, Passive ROM, Active ROM, Scapular Strength/ Stabilization For the Purpose of:: To increase ROM, To improve muscle performance and motor function Manual Therapy Techniques to Include: Passive ROM For the Purpose of:: To increase ROM TENS: Yes Cryotherapy (ice pack, ice massage): Yes Thermo therapy (hot pack): Yes Ultrasound (thermal/non thermal): No For the Purpose of:: To decrease pain Please do not hesitate to contact me at [phone] by phone or Fax: if you have questions or concerns regarding this new plan of care! Sincerely, Sierra Garza
--- NOTE | 2018-01-03 08:44 | HP.PT.NRP ---
HP - Discharge Summary (1) - Patient Information NICOLÁS MATIAS was seen in my office for initial evaluation on 08/28/17. The following Plan of Care was established for this patient: Initial Frequency: 2x /Week Initial Duration: 4 Weeks - Anticipated Interventions Patient/Client Instruction: Educate patient on: Benefits of Fitness Program For the Purpose of:: To improve ability to perform ADL's Therapeutic Exercise to Include: Strength training, Endurance training, Body mechanics, Postural training, Passive ROM, Active ROM, Scapular Strength/Stabilization For the Purpose of:: To increase ROM, To improve muscle performance and motor function Manual Therapy Techniques to Include: Passive ROM For the Purpose of:: To increase ROM TENS: Yes Cryotherapy (ice pack, ice massage): Yes Thermo therapy (hot pack): Yes Ultrasound (thermal/non thermal): No For the Purpose of:: To decrease pain This patient was last seen in our office . Pertinent comments regarding their Physical therapy will appear below: At this point I will be discontinuing this patient from physical therapy. I would be happy to see this patient again in the future if found appropriate by the physician. Thank you! Sierra Garza
== END 2018-01-03 19:00 | disposition home or self-care (01) ==
LOC: PT 08:00
PROVIDERS: Family Provider Internal Medicine; PCP Internal Medicine; Visit Provider Specialist
DX: Z47.1 Aftercare following joint replacement surgery (principal); Z96.611 Presence of right artificial shoulder joint
CPT/HCPCS: 97110; 97140; 97161; 97164

== ENCOUNTER 2018-10-14 02:32 | Emergency (ER) | payer MEDICARE, SELFPAY ==
[2017-08-14 10:58] VITALS: BMI 23.8
[2018-10-14] VITALS (9 sets, daily range): BP systolic 148–194; BP diastolic 62–84; PULSE 65–75; RESP 16–18; TEMP 36.4; O2SAT 93–100; BMI 25.0
--- NOTE | 2018-10-14 02:54 | RAD_ITS ---
HISTORY: FELL 10/13/18C/O LT SHOULDER PAIN AND RT ANKLE PAIN ONLY WHEN WEIGHT BEARING Exam:Left Shoulder COMPARISON: Previous imaging of the shoulder is a right shoulder that has a prosthesis FINDINGS: # of images incl. paperwork: 3 XR Shoulder 3 Views: The humeral head is dislocated anterior medially. No fracture. The acromioclavicular joint is normal. The adjacent chest is unremarkable. RAD/Shoulder min 2 Views IMPRESSION: Anterior medial dislocation of the left shoulder. at 0336 Reported and signed by: Brent Armenta MD Electronically Signed: Brent Armenta MD at 3:35 EDT Tel , Service support ,
--- NOTE | 2018-10-14 02:54 | RAD_ITS ---
HISTORY: FELL 10/13/18C/O LT SHOULDER PAIN AND RT ANKLE PAIN ONLY WHEN WEIGHT BEARING COMPARISON: None FINDINGS: # of images incl. paperwork: 3 XR Ankle Min 3 Views : Soft tissue swelling is about the ankle, laterally greater than medially. No fracture is present. Lateral cortex of the lateral malleolus. 4. Much larger ossicle is present that is likely related to old injury. The ankle mortise is preserved. An ankle effusion is present. A small enthesophyte at the insertion of the Achilles tendon. Some calcification anterior to the distal tibia may be within the anterior tibial artery. RAD/Ankle min 3 Views IMPRESSION: Tiny crescentic avulsion fracture of the inferior lateral aspect of the lateral malleolus. at 0335 Reported and signed by: Brent Armenta MD Electronically Signed: Brent Armenta MD at 3:34 EDT Tel , Service support ,
[2018-10-14] MEDS: Morphine 4 MG/ML Syringe IV (03:40)
[2018-10-14] MEDS: Ondansetron 4 MG/2 ML Vial IV (03:41)
--- NOTE | 2018-10-14 03:54 | RAD_ITS ---
HISTORY: POST REDUCTION Exam:Left Shoulder COMPARISON: One hour earlier FINDINGS: # of images incl. paperwork: 3 XR Shoulder Min 2 Views: The humeral head is well-positioned within the glenoid fossa. No fracture or subluxation. The acromioclavicular joint is normal. The adjacent chest is unremarkable. RAD/Shoulder min 2 Views IMPRESSION: Reduced right shoulder. No fracture perceived. at 0428 Reported and signed by: Brent Armenta MD Electronically Signed: Brent Armenta MD at 4:27 EDT Tel , Service support ,
--- NOTE | 2018-10-14 03:55 | ED.DEP ---
ED Disposition - Plan for ED Patient: Instructions: DISLOCATION: SHOULDER (Reduced) Prescriptions: traMADol [Ultram] 50 mg PO Q6H PRN 3 Days #12 tab PRN Reason: Pain Prescription Printed Referrals: Susan Potter MD [Primary Care Provider] - Alberto Vegas MD [STAFF PHYSICIAN] - Additional Instructions: Also found to have a tiny fracture of your right ankle. Use the boot as needed. Follow-up with orthopedics. Take all medications as prescribed.
[2018-10-14] MEDS: Propofol 200 MG/20 ML Vial IV BOLUS (04:00)
--- NOTE | 2018-10-14 04:00 | ED.DCSUM_ITS ---
- ER Visit Summary Date of Service: 10/14/18 Chief Complaint: Left shoulder pain History of Present Illness: The patient is a 73 F who presents after a fall. She fell 11 hours ago while in [place] before her flight home. She tripped over a curb and twisted her right ankle. She complains of mild right ankle pain as well as severe left shoulder pain. No head injury loss of consciousness or amnesia. She is not anticoagulated. No chest pain abdominal pain back pain. Physical Examination: Afebrile vitals notable for blood pressure 194/84 Neck nontender Heart regular rate and rhythm Lungs clear Abdomen soft Abrasions noted over the left elbow and left knee. She has limited range of motion and deformity of the left shoulder. No pain with range of motion at the elbow or wrist or left lower extremity. She has no pain with range of motion of the right hip or knee. She does have soft tissue swelling and ecchymosis over the lateral malleolus of the right ankle. Normal sensation, brisk capillary refill of extremities x4 Test Results: Left shoulder x-ray shows anterior medial dislocation of the left humeral head. Left ankle x-ray shows a tiny crescent avulsion fracture of the lateral malleolus. Repeat shoulder x-ray shows successful reduction. Emergency Department Course and Treatment: Patient was initially given morphine and Zofran. After informed consent she underwent moderate sedation with propofol. Her shoulder was easily reduced to just with gentle traction. She remains neurovascularly intact after reduction. Repeat x-ray confirms reduction. Patient was given a walking boot for her avulsion fracture of her ankle. She was given a prescription for tramadol for pain. She was advised to follow-up with orthopedics. Treatment Plan: [] Disposition: Discharge Impression: Left shoulder dislocation Right ankle avulsion fracture This note was generated with [employer] dictation software. It may contain incorrect words, spelling, and punctuation that were not noted in review of the chart prior to signing ED Disposition - Plan for ED Patient: Instructions: DISLOCATION: SHOULDER (Reduced) Prescriptions: traMADol [Ultram] 50 mg PO Q6H PRN 3 Days #12 tab PRN Reason: Pain Prescription Printed Referrals: Susan Potter MD [Primary Care Provider] - Alberto Vegas MD [STAFF PHYSICIAN] - Additional Instructions: Also found to have a tiny fracture of your right ankle. Use the boot as needed. Follow-up with orthopedics. Take all medications as prescribed.
== END 2018-10-14 04:56 | disposition home or self-care (01) ==
PROVIDERS: Emergency Provider Emergency Medicine; Family Provider Internal Medicine; PCP Internal Medicine
DX: S43.015A Anterior dislocation of left humerus, initial encounter (principal); S82.64XA Nondisplaced fracture of lateral malleolus of right fibula, initial encounter for closed fracture; I10 Essential (primary) hypertension; E78.00 Pure hypercholesterolemia, unspecified; Z79.82 Long term (current) use of aspirin; Z79.899 Other long term (current) drug therapy; W01.0XXA Fall on same level from slipping, tripping and stumbling without subsequent striking against object, initial encounter; Y93.01 Activity, walking, marching and hiking; Y92.89 Other specified places as the place of occurrence of the external cause; Y99.8 Other external cause status
CPT/HCPCS: 23650; 73030; 73610; 96374; 96375; 99285; J7030; A4216; J2405

== ENCOUNTER 2018-12-26 08:30 | Outpatient (RCR) | payer MEDICARE, SELFPAY ==
[2018-10-14 02:34] VITALS: BMI 25.0
--- NOTE | 2018-11-05 09:22 | HP.PTEVAL_ITS ---
Patient's Visit Information NICOLÁS MATIAS is a 73 year old F referred to Physical Therapy by Alberto Vegas MD with a diagnosis of L Shoulder dislocation. Date of Evaluation: 11/05/18 Physical Therapist: Sierra Garza DPT - Visit Plan Frequency: 2x /Week Duration: 3 Weeks Plan: Focus on pain free ROM, strength and scapular stabilization. Current health & wellness member return to [facility] exercise program as able. - Subjective Findings: Pt. reports falling on her L shoulder on 10/13/18 prior to her flight home from [place]. Took flight home without seeking medical attention. [facility] Upon return flight to [place] visited [place] [facility] at 2 AM where she received X-Rays that showed dislocation. They placed shoulder back in place under mild sedation and sent pt. home with sling. . Pt. visited Dr. Vgeas on 10/16/18 where MRI results showed damage to L shoulder- pt. unable to give specific results. Dr. Vegas suggested undergoing therapy before deciding on surgery.Pt. states wanting to avoid surgery if possible. Pt. R reverse total shoulder a few years ago. . Pt. is R hand dominant and [place] radiating pain up to neck or down the arm past the elbow. Pain remains localized to her left deltoid. . Pt. reports pain at worst to be 4/10. . Aggravating Factors: Folding towels, dressing, and washing her back. . Pain disrupts her sleeping habits. Pt. does wear sling while she sleeps. . Pain Free: At rest. . Relieving Factors: Heat, Ice. . Pt. 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 . Pain description: sharp w/ movement of L shoulder, more of dull feeling with less movement. . Pt. reports no recent changes with her PMH. Pt. confirms to be participating on home aerobic exercise program, has deferred any UE exercises since [facility]. Pt. reports being afraid to moveL shoulder, but increases her comfort & self-confidence after performing ROM exercises. Pt. does report some discomfort with R shoulder from compensation strategies. - Objective Posture: FH, RS- was able to correct but did not maintain- mild guarding of left UE in beginning of session but at end of session no guarding noted. Gait: no LE deviation- decreased arm swing and trunk rotation,. Palpation: NTP. ROM: Active. ?Cervical: WFL. ?L Shoulder: Flexion pt. initially demo?d 135 flexion (after performing ROM exercises pt. demo?d 165 degrees of flexion), abd./add. ? WFL, IR/ER ? WFL. Pt. was able to reach behind her head w/ no shoulder and no discomfort. ?Elbow: Flex/Ext ? WFL. ?Wrist: Sup./Pro ? WFL. ?Finger dexterity: WFL. Strength: Elbow Flex/Ext.: 4+/5, Shoulder Flex 4-/5, IR/ER 4/5, Abd./Add. 4+/5 (from neutral), Cloth Shrinker: WNL- Scap s/s: fair. Sensation: WNL to gross touch B. Special Test: not indicated due to MRI results - Goals Goal 1:: Pt. will be I with HEP & progression Goal Time Frame: 4-6 Weeks Goal 2:: Pt. will perform ADL's/exercise regime with pain level of 0/10 Goal Time Frame: 4-6 Weeks Goal 3:: Pt. will return to full AROM with 0/10 pain Goal Time Frame: 4-6 Weeks Goal 4:: Pt. will maintain proper posture to demo increased scapular strength & stabilization Goal Time Frame: 4-6 Weeks - Rehabilitation Potential Physical Therapy Diagnosis: Pt. presents with hypomobility - pt. demos decreased pain free ROM, strength, & muscular endurance leading to decreased participation in ADLs. Rehabilitation Potential: Good - Anticipated Interventions Patient/Client Instruction: Educate patient on: Benefits of Fitness Program Therapeutic Exercise to Include: Strength training, Endurance training, Body mechanics, Postural training, Flexibilty training, Active ROM, Scapular Strength/Stabilization For the Purpose of:: To improve muscle performance and motor function Cryotherapy (ice pack, ice massage): Yes Thermo therapy (hot pack): Yes For the Purpose of:: To decrease pain Thank you for the opportunity to evaluate your patient. For Medicare and Medicare HMO plans, please review the plan of care and approve it. It will need to be FAXED BACK to us at [phone] for Medicare purposes. For Medicare only, by signing this I certify the plan of care. Please let me know if there are questions or concerns regarding this plan of care. Physician Sig nature: Date:
--- NOTE | 2018-12-01 08:39 | HP.PTREVAL_ITS ---
Alberto Vegas MD, It has been my pleasure to treat NICOLÁS MATIAS over the last 7 visits for L Shoulder dislocation. Please see the progress note below for an update on the physical therapy plan of care! Subjective: Saw 11/26/18 & reports surgery was not needed, but cont. w/ more therapy. Pt. cont. to report L shoulder pain w/ ache, 3/10 just enough to know it's there. Reports L shoulder still feels weak at times. Claims has not been performing HEP every single day, but does sometimes. States shoulder is not keeping her from doing much, except w/ laundry & reaching activities t/o the day. Follow up w/ in 6 weeks. Objective/Function: Posture: FH, RS- was able to correct but did not maintain. Gait: no LE deviation. Normal arm swing and trunk rotation,. Palpation: TTP at L infraspinatus & bicepital groove. ROM: Active. ?Cervical: WFL. ?L Shoulder: Flexion 168 degrees abd./add. ? WFL, IR/ER ? WFL. Pain at end-range with overpressure w/ shoulder flex./abd. Pt. was able to reach behind her head no s/s. ?Elbow: Flex/Ext ? WFL. ?Wrist: Sup./Pro ? WFL. ?Finger dexterity: WFL. Strength: Elbow Flex/Ext.: 4+/5 (painful w/ flex), Shoulder Flex 4-/5 (painful), IR/ER 5/5 (pain w/ IR), Abd./Add. 4+/5 (from neutral, painful), General Lot Attendant: WNL- Scap s/s: fair. Sensation: WNL to gross touch B Plan Plan: 12/01/18 - Pt. scheduled for 4 more weeks of PT per 's request. Goals Goal 1:: Pt. will be I with HEP & progression Goal Time Frame: 4-6 Weeks Goal Progress: Progressing Goal 2:: Pt. will perform ADL's/exercise regime with pain level of 0/10 Goal Time Frame: 4-6 Weeks Goal Progress: Progressing Goal 3:: Pt. will return to full AROM with 0/10 pain Goal Time Frame: 4-6 Weeks Goal Progress: Progressing Goal 4:: Pt. will maintain proper posture to demo increased scapular strength & stabilization Goal Time Frame: 4-6 Weeks Goal Progress: Progressing Anticipated Interventions Patient/Client Instruction: Educate patient on: Benefits of Fitness Program Therapeutic Exercise to Include: Strength training, Endurance training, Body mechanics, Postural training, Flexibilty training, Active ROM, Scapular Strength/Stabilization For the Purpose of:: To improve muscle performance and motor function Cryotherapy (ice pack, ice massage): Yes Thermo therapy (hot pack): Yes For the Purpose of:: To decrease pain Please do not hesitate to contact me at [phone] by phone or if you have questions or concerns regarding this new plan of care! Sincerely, LISSETTE SinghT
--- NOTE | 2018-12-26 09:59 | HP.PTDCSUM ---
HP - PT D/C Summary It has been my pleasure to treat NICOLÁS MATIAS under orders from Alberto Vegas MD, for the diagnosis of L Shoulder dislocation for a total of 14 visit(s). Discharge Date: Please see the following information for a summary of their discharge status. - Subjective Subjective: pt. reports being very happy with therapy and belives it has made a great differe, still feels she is lacking some strength. - Overall Improvement % Improvement: 90 - Objective Objective/Function: Posture: improved-fair posture. Gait: no LE deviation- decreased arm swing and trunk rotation,. Palpation: NTP. ROM: SHoulder WFL in all planes. ?Elbow: Flex/Ext ? WFL. ?Wrist: Sup./Pro ? WFL. ?Finger dexterity: WFL. Strength: Elbow Flex/Ext.: 5/5, Shoulder Flex 4+/5, IR/ER 4+/5, Abd./Add. 4+/5 (from neutral), Supervisor Scrap Preparation: WNL- Scap s/s: fair. Sensation: WNL to gross touch B - Goals Goal 1:: Pt. will be I with HEP & progression Goal Progress: Goal Met Goal 2:: Pt. will perform ADL's/exercise regime with pain level of 0/10 Goal Progress: Goal Met Goal 3:: Pt. will return to full AROM with 0/10 pain Goal Progress: Goal Met Goal 4:: Pt. will maintain proper posture to demo increased scapular strength & stabilization Goal Progress: Goal Met - Plan Plan: 12/26/18 Pt. D/C & instructed to cont. HEP I - D/C Information If there are questions or concerns regarding this patient's physical therapy, please feel free to call me at [phone]. Thank you for the referral of this patient. Sincerely, LISSETTE SinghT
== END 2018-12-26 19:00 | disposition home or self-care (01) ==
LOC: PT 08:30
PROVIDERS: Family Provider Internal Medicine; PCP Internal Medicine; Referring Provider Specialist; Visit Provider Specialist
DX: S46.012D Strain of muscle(s) and tendon(s) of the rotator cuff of left shoulder, subsequent encounter (principal)
CPT/HCPCS: 97110; 97161; 97164

== ENCOUNTER 2020-05-16 13:30 | Outpatient (RCR) | payer MEDICARE, SELFPAY ==
[2019-12-02 09:47] VITALS: BMI 25.0
== END 2020-05-16 23:59 ==
LOC: IMMUN 13:30
PROVIDERS: PCP Internal Medicine; Visit Provider Family Medicine
DX: Z23 Encounter for immunization (principal)
CPT/HCPCS: 0011A; 0012A

== ENCOUNTER → 2020-12-06 | Outpatient (CLI) | payer MEDICARE, SELFPAY | END | disposition home or self-care (01) | LOC: LABSPEC 10:27 | PROVIDERS: PCP Internal Medicine; Referring Provider Physician Assistant Surgical; Visit Provider Physician Assistant Surgical | DX: R52 Pain, unspecified (principal) | CPT/HCPCS: 87635; U0005; U0003 ==

== ENCOUNTER 2022-04-13 14:20 | Emergency (ER) | payer MEDICARE, SELFPAY ==
[2022-04-13 14:21] VITALS: BP 140/61; PULSE 87; RESP 16; TEMP 36.4; O2SAT 94; BMI 24.3
--- NOTE | 2022-04-13 14:41 | CT_ITS ---
We are attempting to reach an attending provider to discuss findings. An addendum with communication details will be sent when the communication is complete. STUDY: CTA CHEST REASON FOR EXAM: Female, 77 years old. Elevated dimer -- 9100 level outpatient 2 days ago RADIATION DOSAGE (If Supplied By Facility): CTDIvol = ( 6.46 ) mGy, DLP = ( 216.89 ) mGycm TECHNIQUE: The examination was performed with the intravenous administration of IV 100mL Isovue-370. Post-processing of the angiographic images was performed, with multiplanar reformation and 3D reconstruction. Individualized dose optimization techniques were used for this CT. COMPARISON: None. FINDINGS: Motion artifact degrades anatomic detail. Normal enhancement of the main pulmonary artery and right and left pulmonary arteries. There are filling defect within a segmental and subsegmental pulmonary arteries within the right lower lobe consistent with emboli. There are additional pulmonary emboli within the right middle and bilateral upper lobes. There is no evidence of ventricular heart strain. Normal thoracic aorta and visualized great vessels. There are peripheral calcifications of the thoracic aorta. There is no demonstrated aortic dissection. Normal heart and pericardium. There are no coronary artery calcifications visualized. There are prominent and borderline enlarged mediastinal lymph nodes. Normal visualized trachea and bronchi. There is minimal bibasilar atelectasis and/or scarring. Normal chest wall structures. There are degenerative changes of the thoracic spine. There is a right shoulder arthroplasty in place. Normal visualized upper abdomen. CT/CTA Chest W/WO Contrast IMPRESSION: Limited examination secondary to motion artifact demonstrating bilateral pulmonary emboli, most pronounced within the right lower lobe. Bibasilar atelectasis and/or scarring. Atherosclerosis. Electronically Signed: Shayy Mccarty MD at 16:25 EST ,
--- NOTE | 2022-04-13 14:43 | EX.ED.DYSGE1 ---
HPI History of Present Illness Chief Complaint: Abn Labs Informant: patient and spouse/S.O. Narrative Narrative: Sent into the emergency department due to abnormal D-dimer done 2 days by PCP. She saw PCP 2 days ago after a dry cough with right back pain day prior. No recent travel surgeries or immobilizations. No history of PE or DVT. She states chest x-ray was obtained concerning for pneumonia she is on a Z-Joni. States symptoms are improving. She had exertional dyspnea at that time. Denies asthma or COPD. History of hypertension hyperlipidemia. History of anxiety and depression. She states results are on the phone I reviewed that she had a D-dimer of 9100. Troponin was negative. Chest x-ray was indeterminate with right pleural effusion with opacity atelectasis versus pneumonia. [facility] Medical History Acute maxillary sinusitis, unspecified Fatigue Hemorrhoids HTN (hypertension) Shoulder pain SOB (shortness of breath) Home Medications calcium carbonate 600 mg-vitamin D3 10 mcg (400 unit) tablet 1 ea PO DAILY SUPPLEMENT 04/18/17 [History Last Taken Unknown] cholecalciferol (vitamin D3) 25 mcg (1,000 unit) capsule 1,000 unit PO DAILY SUPPLEMENT 04/18/17 [History Last Taken Unknown] duloxetine 30 mg capsule,delayed release 30 mg PO QHS DEPRESSION 04/18/17 [History Last Taken Unknown] lisinopril 20 mg-hydrochlorothiazide 12.5 mg tablet 1 tab PO DAILY BP 04/18/17 [History Last Taken Unknown] multivit with tsnnubsb-lqcu-PJ-lutein 8 mg iron-400 mcg-300 mcg tablet 1 ea PO DAILY SUPPLEMENT 04/18/17 [History Last Taken Unknown] potassium chloride 20 mEq tablet,extended release(part/cryst) 20 meq PO DAILY POTASSIUM 04/18/17 [History Last Taken Unknown] simvastatin 20 mg tablet 20 mg PO QHS CHOLESTEROL 04/18/17 [History Last Taken Unknown] vitamin E 268 mg (400 unit) capsule 400 unit PO DAILY SUPPLEMENT 04/18/17 [History Last Taken Unknown] ascorbic acid (vitamin C) 500 mg chewable tablet 500 mg PO DAILY SUPPLEMENT 07/31/17 [History Last Taken Unknown] tolnaftate 1 % topical cream 30 g TP DAILY PRN Rash/Topical Irritation 07/31/17 [History Last Taken Unknown] acetaminophen 500 mg tablet 1,000 mg PO Q8 #90 tabs 08/15/17 [Rx Last Taken Unknown] aspirin 325 mg tablet 325 mg PO DAILY@0800 #14 tabs 08/15/17 [Rx Last Taken Unknown] rivaroxaban 15 mg (42)-20 mg (9) tablets in a starter pack (Xarelto DVT-PE Treatment 30-Day Starter) See Rx Instructions PO .COMPLEX #51 tabs 04/13/22 [Rx Last Taken Unknown] Allergy/AdvReac Type Severity Reaction Status Date / Time codeine AdvReac PASSED OUT Verified 04/13/22 14:23 fluoxetine [From Prozac] AdvReac Other Verified 04/13/22 14:23 prednisone AdvReac FREQ Verified 04/13/22 14:23 URINATION, INSOMNIA Surgical History Hx of shoulder surgery Social History Smoking Status: Never smoker alcohol intake: current alcohol intake frequency: holidays/special occasions only ROS ROS ED Constitutional Constitutional ED: Denies chills, fever(s) or sweats Eyes Eyes: Denies change in vision ENT ENT ED: Denies dysphagia or sore throat Cardiovascular Cardiovascular: Denies chest pain, leg edema, palpitations or racing heartbeat Respiratory/Chest Respiratory/Chest: Reports cough and dyspnea; Denies dyspnea on exertion Gastrointestinal Gastrointestinal: Denies abdominal pain, diarrhea, nausea or vomiting Genitourinary Genitourinary ED: Denies dysuria, hematuria or urinary frequency Musculoskeletal Musculoskeletal: Denies back pain, extremity pain or neck pain Integumentary Denies rash or wounds Neurologic Neurologic: Denies headache(s), paresthesias or weakness EXAM Physical Exam Const Vital Signs: 04/13/22 14:21 04/13/22 14:56 04/13/22 16:20 Temperature 97.5 F L Temperature Source Temporal Pulse Rate 87 Respiratory Rate 16 16 Respiratory Effort Normal Non-Labored Respiratory Pattern Normal Blood Pressure 140/61 H Blood Pressure Mean 87 Pulse Ox 94 Oxygen Delivery Method Room Air 04/13/22 17:20 Temperature Temperature Source Pulse Rate Respiratory Rate 18 Respiratory Effort Respiratory Pattern Blood Pressure Blood Pressure Mean Pulse Ox Oxygen Delivery Method Positive well nourished and well developed General Appearance ED: well developed and NAD HEENT Reports moist mucous membranes normocephalic and atraumatic Eyes PERRL, EOMs intact bilaterally and conjunctivae normal General Eye ED: Yes normal appearance of both eyes Neck no lymphadenopathy and supple General: Negative for tenderness Chest Wall Chest: Negative for tenderness Resp normal respiratory effort and normal air movement Effort and Inspection: symmetric chest movement; Negative for respiratory distress Cardio regular rate, regular rhythm and no murmurs Peripheral Pulses: pulses 2+ throughout GI normal to inspection, nondistended, normoactive bowel sounds and non-tender Palpation: Negative for guarding or rebound tenderness present Back/Spine no CVA tenderness and no thoracic nor lumbar tenderness Extremity normal to inspection General Extremety ED: Negative for edema or tenderness General Extremity: Negative for edema Neuro oriented x3 and no sensory deficits noted Sensorium / Orientation: awake and alert Skin no rashes or lesions noted and no wounds MDM MDM MDM Narrative Medical decision making narrative: Patient vital signs stable no respiratory distress. 94% on room air. Clinically improving with her Z-Joni that was written 2 days ago. However due to D-dimer being elevated at 9100 work-up initiated. Differential bronchitis, pneumonia, PE. Laboratory studies obtained reviewed by myself hemoglobin 11.6 platelets [address] angiogram of the chest interpreted myself and a discussion with radiology for final read concerns for multiple segmental and subsegmental PEs more in the right side there is small in the left upper lobe. There is no heart strain. Patient was ambulated maintaining 94%. No respiratory distress. She is started on Xarelto with a starter kit. I spoke with her PCP Dr. Potter updated on patient's findings. She will follow-up with the patient as an outpatient. Return precaution discussed. All questions were answered. Lab Data Labs: Laboratory Results - last 24 hr 04/13/22 04/13/22 14:49 14:49 WBC 8.3 RBC 3.53 L Hgb 11.6 L Hct 35.0 L MCV 99.2 H MCH 32.9 H MCHC 33.1 RDW Std Deviation 43.0 RDW Coeff of Hi 11.9 Plt Count 298 MPV 10.6 Immature Gran % (Auto) 0.600 Neut % (Auto) 64.8 Lymph % (Auto) 24.2 [place] % (Auto) 8.3 Eos % (Auto) 1.7 Baso % (Auto) 0.4 Absolute Neuts (auto) 5.4 Absolute Lymphs (auto) 2.00 Nucleated RBC % 0 Sodium 139 Potassium 3.8 Chloride 100 Carbon Dioxide 29.0 Anion Gap 10 BUN 17 Creatinine 0.95 Estim Creat Clear Calc 37.42 Est GFR (MDRD) Af Amer 74 Est GFR (MDRD) Non-Af 61 BUN/Creatinine Ratio 17.9 Glucose 186 H Calcium 9.3 Radiography Diagnostic Testing: Clinical Impression(s) from Imaging Studies Chest CTA 04/13/22 14:41 IMPRESSION: Limited examination secondary to motion artifact demonstrating bilateral pulmonary emboli, most pronounced within the right lower lobe. Bibasilar atelectasis and/or scarring. Atherosclerosis. Electronically Signed: Shayy Mccarty MD at 16:25 EST , ADDENDUM: 04/13/22 1638 IMPRESSION: Limited examination secondary to motion artifact demonstrating bilateral pulmonary emboli, most pronounced within the right lower lobe. Bibasilar atelectasis and/or scarring. Atherosclerosis. N.B. : The above Results were Read Back by Shayy Mccarty MD to Deepak Candelaria MD, and understanding confirmed on 04/13/2022 16:31:50 (ET). Electronically Signed: Shayy Mccarty MD at 16:25 EST , Discharge Plan Triage Chief Complaint: Abn Labs ED Provider: Deepak Candelaria Dx/Rx/DC Orders Clinical Impression: Pulmonary embolism, bilateral, Cough, Dyspnea Instructions: Pulmonary Embolism Prescriptions: New Xarelto DVT-PE Treat 30d Start 15 mg (42)- 20 mg (9) tablets,dose pack See Rx Instructions .ROUTE .COMPLEX Qty: 51 0RF Rx Instructions: take one-15 mg tablet twice daily for 21 days, then one-20 mg tablet once daily; must take with meal/food No Action lisinopril-hydrochlorothiazide 1 TABLET tablet 1 tab PO DAILY potassium chloride 20 MEQ tablet,ER particles/crystals 20 meq PO DAILY simvastatin 20 MG tablet 20 mg PO QHS vitamin E 400 UNIT capsule 400 unit PO DAILY cholecalciferol (vitamin D3) 1,000 UNIT capsule 1,000 unit PO DAILY duloxetine 30 MG capsule 30 mg PO QHS tynmoqdr-scy-datx-FA-lutein 1 EACH tablet 1 ea PO DAILY calcium carbonate-vitamin D3 1 EACH tablet 1 ea PO DAILY tolnaftate 30 GM cream 30 g TP DAILY PRN (Reason: Rash/Topical Irritation) ascorbic acid (vitamin C) 500 MG tablet,chewable 500 mg PO DAILY aspirin 325 MG tablet 325 mg PO DAILY@0800 Qty: 14 0RF acetaminophen 500 MG tablet 1,000 mg PO Q8 Qty: 90 0RF Primary Care Provider: Susan Potter Referrals: Susan Potter MD [Primary Care Provider] - 1-2 Weeks Activity Restrictions/Additional Instructions: Segmental and subsegmental PE right side, small subsegmental in the left upper lobe. No heart strain. Take Xarelto as prescribed, minimal treatment is 6 months. Follow-up with Dr. Ramos. Return if any worsening symptoms. Disposition Disposition: Home, Self Care Discharge Date/Time: 04/13/22 17:20
[2022-04-13 14:57] LABS: Absolute Neutrophil Count 5.4 X10^3/uL (2.0-7.7); Basophil# 0.03 X10^3/uL; Basophil% 0.4 % (0-1); Eosinophil# 0.14 X10^3/uL; Eosinophils% 1.7 % (0-5); Hemoglobin 11.6 g/dL (12.0-15.0); Lymphocyte % 24.2 % (19-41); Mean Corp Hgb Conc 33.1 g/dL (32-36); Mean Corpuscular Hgb 32.9 pg (27.0-32.0); Mean Corpuscular Volume 99.2 fL (81-99); Mean Platelet Vol. 10.6 fl (6.2-12.0); Monocyte# 0.69 X10^3/uL; Monocyte% 8.3 % (0-10); NRBC Flagged by Analyzer 0 % (0-5); Neutrophil # 5.37 X10^3/uL (2.7-7.7); Neutrophil % 64.8 % (47-70); Platelet Count 298 K/mm3 (150-450); RBC Distribution Width CV 11.9 % (11.6-14.6); Red Blood Count 3.53 M/mm3 (4.2-5.4); White Blood Count 8.3 K/mm3 (4.4-11.0)
[2022-04-13 15:23] LABS: Anion Gap 10 (5-15); BUN 17 mg/dL (7-18); BUN/Creat Ratio 17.9 RATIO (10-20); Calcium,Total 9.3 mg/dL (8.5-10.1); Chloride 100 mmol/L (98-107); Creatinine, Serum 0.95 mg/dL (0.55-1.02); EST Glomerular Filtration Rate 61 mL/min (>60); Est Glom Filt Rate - Afr Amer 74 mL/min (>60); Estimated Creatinine Clearance 37.42 ml/min; Glucose 186 mg/dL (74-106); Potassium 3.8 mmol/L (3.5-5.1); Sodium Level 139 mmol/L (136-145)
[2022-04-13 16:20] VITALS: RESP 16
[2022-04-13 16:33] VITALS: O2SAT 94
[2022-04-13] MEDS: Rivaroxaban 15 MG Tablet PO (17:15)
[2022-04-13 17:20] VITALS: RESP 18
== END 2022-04-13 17:20 | disposition home or self-care (01) ==
PROVIDERS: Emergency Provider Emergency Medicine; PCP Internal Medicine; Visit Provider Emergency Medicine
DX: I26.99 Other pulmonary embolism without acute cor pulmonale (principal); I10 Essential (primary) hypertension; J90 Pleural effusion, not elsewhere classified; R05.9 Cough, unspecified; R06.00 Dyspnea, unspecified
CPT/HCPCS: 71275; 80048; 85025; 99284; Q9967; A4216

== ENCOUNTER 2022-04-18 10:51 | Emergency (ER) | payer MEDICARE, SELFPAY ==
[2022-04-18 10:52] VITALS: BP 152/72; PULSE 84; RESP 16; TEMP 35.7; O2SAT 100; BMI 24.5
--- NOTE | 2022-04-18 11:15 | EKG12_ITS ---
Test Reason : SOB Blood Pressure : / mmHG Vent. Rate : 079 BPM Atrial Rate : 079 BPM P-R Int : 190 ms QRS Dur : 086 ms QT Int : 382 ms P-R-T Axes : 063 -57 097 degrees QTc Int : 438 ms Normal sinus rhythm Left anterior fascicular block Left ventricular hypertrophy with repolarization abnormality ( R in aVL , [place] product ) Cannot rule out Septal infarct , age undetermined Abnormal ECG Confirmed by RICHARD WOODARD, AVIVA ([id number]), city editor CAROLINA MCKEON ([id number]) on 04/20/2022 8:52:30 AM Referred By: Confirmed By:INDIA RAMOS MD
--- NOTE | 2022-04-18 11:15 | CT_ITS ---
STUDY: CT ABDOMEN AND PELVIS WITHOUT CONTRAST REASON FOR EXAM: Female, 77 years old. Flank pain. Shortness of breath. RADIATION DOSAGE (If Supplied By Facility): CTDIvol = ( 8.09 ) mGy, DLP = ( 375.79 ) mGycm TECHNIQUE: Transaxial images were obtained from the dome of the diaphragm to the symphysis pubis without oral contrast, and without intravenous contrast. Sagittal and coronal images were reconstructed. Individualized dose optimization techniques were used for this CT. COMPARISON: None. FINDINGS: Patchy bibasilar pulmonary infiltrates. Coronary artery calcification. Normal liver. Normal gallbladder and extrahepatic biliary system. Normal spleen. Normal pancreas. Normal bilateral adrenal glands. Nonspecific right perinephric stranding. Mild left hydronephrosis due to a 3.9 mm calculus in the midportion of the right ureter. There is a 1.6 cm x 1.8 cm hyperdense nodule. This may represent either a solid mass versus hyper dense cyst. There is also evidence of a 1.4 cm simple cyst in the lateral posterior aspect of the right kidney. Correlation with ultrasound is recommended for further evaluation. Normal left kidney. There is a small hiatal hernia. Normal small intestine. There are scattered colonic diverticula consistent with diverticulosis. The appendix is visualized and appears normal. There is diffuse atherosclerotic calcification of the abdominal aorta, without a demonstrated aneurysm. Normal inferior vena cava. Normal retroperitoneum. Normal urinary bladder. Normal abdominal wall. Disc space narrowing and subchondral sclerosis at the L5-S1 level. CT/Abdomen/Pelvis without Cont IMPRESSION: 3.9 mm calculus in the midportion of the right ureter causing mild degree of right hydronephrosis and the perinephric stranding. 1.6 x 1.8 cm hypodense nodule in the lower pole of the right kidney as described. Correlation with ultrasound is recommended. Patchy bibasilar pulmonary infiltrates. Electronically Signed: Kalin Zuluaga MD at 12:46 EST ,
--- NOTE | 2022-04-18 11:16 | EX.ED.DYSGE1 ---
HPI History of Present Illness Chief Complaint: Shortness of Breath Detail of Chief Complaint: Right flank pain x2 days Informant: patient Narrative Narrative: Patient presents with right flank pain as for 2 days ago. Patient states that she was seen in the emergency department about 5 days ago and diagnosed with pulmonary emboli and started on Xarelto. Patient last night had a time sleeping because of the pain in her back that was worse with breathing and certain movements. She denies urinary symptoms. She does complain of some shortness of breath with activity. Patient states she just does not feel well. Patient did have travel in February to [place]. No prior history of blood clots. Patient does not want a thing for pain currently. Patient denies fever. She denies dysuria. She denies hemoptysis. [facility] Medical History Acute maxillary sinusitis, unspecified Fatigue Hemorrhoids HTN (hypertension) Shoulder pain SOB (shortness of breath) Home Medications calcium carbonate 600 mg-vitamin D3 10 mcg (400 unit) tablet 1 ea PO DAILY SUPPLEMENT 04/18/17 [History Last Taken Unknown] cholecalciferol (vitamin D3) 25 mcg (1,000 unit) capsule 1,000 unit PO DAILY SUPPLEMENT 04/18/17 [History Last Taken Unknown] duloxetine 30 mg capsule,delayed release 30 mg PO QHS DEPRESSION 04/18/17 [History Last Taken Unknown] lisinopril 20 mg-hydrochlorothiazide 12.5 mg tablet 1 tab PO DAILY BP 04/18/17 [History Last Taken Unknown] multivit with kulinbte-meqb-HL-lutein 8 mg iron-400 mcg-300 mcg tablet 1 ea PO DAILY SUPPLEMENT 04/18/17 [History Last Taken Unknown] potassium chloride 20 mEq tablet,extended release(part/cryst) 20 meq PO DAILY POTASSIUM 04/18/17 [History Last Taken Unknown] simvastatin 20 mg tablet 20 mg PO QHS CHOLESTEROL 04/18/17 [History Last Taken Unknown] vitamin E 268 mg (400 unit) capsule 400 unit PO DAILY SUPPLEMENT 04/18/17 [History Last Taken Unknown] ascorbic acid (vitamin C) 500 mg chewable tablet 500 mg PO DAILY SUPPLEMENT 07/31/17 [History Last Taken Unknown] tolnaftate 1 % topical cream 30 g TP DAILY PRN Rash/Topical Irritation 07/31/17 [History Last Taken Unknown] acetaminophen 500 mg tablet 1,000 mg PO Q8 #90 tabs 08/15/17 [Rx Last Taken Unknown] aspirin 325 mg tablet 325 mg PO DAILY@0800 #14 tabs 08/15/17 [Rx Last Taken Unknown] rivaroxaban 15 mg (42)-20 mg (9) tablets in a starter pack (Xarelto DVT-PE Treatment 30-Day Starter) See Rx Instructions PO .COMPLEX #51 tabs 04/13/22 [Rx Last Taken Unknown] hydrocodone-acetaminophen 5-325mg 5mg-325mg 1 tab PO Q4H PRN PRN Pain 2 days #10 TABLETS 04/18/22 [Rx Last Taken Unknown] ondansetron 4 mg disintegrating tablet 4 mg PO Q8H PRN PRN Nausea #10 tabs 04/18/22 [Rx Last Taken Unknown] Allergy/AdvReac Type Severity Reaction Status Date / Time codeine AdvReac PASSED OUT Verified 04/13/22 14:23 fluoxetine [From Prozac] AdvReac Other Verified 04/13/22 14:23 prednisone AdvReac FREQ Verified 04/13/22 14:23 URINATION, INSOMNIA Surgical History Hx of shoulder surgery Social History Smoking Status: Never smoker alcohol intake: current alcohol intake frequency: holidays/special occasions only ROS ROS ED Review of Systems ROS Unobtainable: other Constitutional Constitutional ED: Reports lethargy; Denies chills, fever(s), sweats or weight loss Eyes Eyes: Denies blurry vision, change in vision or diplopia ENT ENT ED: Denies rhinorrhea or sore throat Cardiovascular Cardiovascular: Denies chest pain, orthopnea or racing heartbeat Respiratory/Chest Respiratory/Chest: Reports dyspnea and dyspnea on exertion; Denies cough, orthopnea or sputum Gastrointestinal Gastrointestinal: Denies abdominal pain, diarrhea, nausea or vomiting Genitourinary Genitourinary ED: Denies dysuria, hematuria or urinary frequency Musculoskeletal Musculoskeletal: Reports back pain; Denies arthralgias, myalgias or neck pain Integumentary Denies abscess, Abrasions or rash Neurologic Neurologic: Denies headache(s) or weakness Psychiatric Psychiatric: Denies anxiety, depression or suicidal thoughts Endocrine Endocrinology: Denies polydipsia, polyphagia or polyuria Hematologic/Lymphatic Hematologic/Lymphatic: Denies easy bleeding, easy bruising or lymphadenopathy Allergic/Immunologic Allergic/Immunologic ED: Denies mouth swelling, tongue swelling or urticaria EXAM Physical Exam Const Vital Signs: 04/18/22 10:52 04/18/22 11:32 04/18/22 14:00 Temperature 96.3 F L Temperature Source Temporal Pulse Rate 84 78 Respiratory Rate 16 16 Respiratory Effort Short of Breath Respiratory Depth Normal Respiratory Pattern Normal Blood Pressure 152/72 H 126/78 H Blood Pressure Mean 98 94 Pulse Ox 100 98 Oxygen Delivery Method Room Air Room Air Room Air Positive well nourished and well developed General Appearance ED: well developed and NAD HEENT Reports TM's clear and moist mucous membranes normocephalic and atraumatic; Negative for trauma or tenderness Tympanic Membrane ED: Yes TM's clear Eyes PERRL and EOMs intact bilaterally General Eye ED: Negative for pale conjunctiva or scleral icterus Neck no lymphadenopathy, supple and no JVD General: Negative for tenderness Chest Wall inspection of chest normal and palpation of chest normal Chest: Negative for tenderness Resp normal respiratory effort and clear to auscultation bilaterally Effort and Inspection: Negative for respiratory distress or pain with movement Auscultation: Negative for rhonchi, wheezes or diminished lung sounds Cardio regular rate, regular rhythm, S1 normal heart sound, S2 normal heart sound and no murmurs Peripheral Pulses: pulses 2+ throughout GI normal to inspection, nondistended, normoactive bowel sounds, soft to palpation, non-tender, non-distended and no masses Back/Spine no CVA tenderness and no thoracic nor lumbar tenderness Extremity normal to inspection General Extremety ED: Negative for edema General Extremity: Negative for edema Neuro oriented x3, CN's II-XII intact bilaterally, no sensory deficits noted and gait normal Sensorium / Orientation: awake, alert, oriented to person, oriented to place and oriented to time Motor Exam: strength 5/5 throughout and strength abnormal Psych mental status grossly normal Skin no rashes or lesions noted and no wounds MDM MDM MDM Narrative Medical decision making narrative: I will establish an arrival. Patient did not want a thing for pain. Patient had a CBC with differential that showed a slightly elevated white count of 13.2. Chemistries were unremarkable. Urinalysis showed 10-25 WBCs and 5-10 RBCs with +1 bacteria and negative for nitrates. We obtained a CT scan of the abdomen pelvis that showed a 3.9 mm stone right mid ureter that I suspect is causing her pain. Incidentally also patient was noted to have a nodule in the right kidney and it was recommended that we obtain an ultrasound to evaluate further. Ultrasound did show a 2 x 1 x 2 cm solid nodule with concern for ureteral carcinoma. I discussed with urologist Dr. Zavala who will see patient in follow-up consultation. Patient will be dispensed urine strainers. She will be given a prescription for Zofran and [place] for pain. Patient also had a chest x-ray that showed increased markings in both lower lobes. Patient already on antibiotics and just finished Zithromax and she states she has another antibiotic she is currently taken. Patient has no fever here and she is not tachypneic or hypoxic therefore I think her symptomatology related to the kidney stone. Also she has the incidental finding of the renal mass which will need further work-up and evaluation. Patient advised to return if persistent severe pain, vomiting, fevers, or condition should worsen anyway. Lab Data Attestation: I reviewed the patient's lab results. Labs: Laboratory Results - last 24 hr 04/18/22 04/18/22 04/18/22 11:20 11:20 13:25 WBC 13.2 H RBC 3.31 L Hgb 11.1 L Hct 32.2 L MCV 97.3 MCH 33.5 H MCHC 34.5 RDW Std Deviation 40.9 RDW Coeff of Hi 11.4 L Plt Count 394 MPV 10.3 Immature Gran % (Auto) 0.500 Neut % (Auto) 82.8 H Lymph % (Auto) 9.6 L [place] % (Auto) 6.6 Eos % (Auto) 0.3 Baso % (Auto) 0.2 Absolute Neuts (auto) 10.9 H Absolute Lymphs (auto) 1.27 Nucleated RBC % 0 Sodium 136 Potassium 3.6 Chloride 101 Carbon Dioxide 28.0 Anion Gap 7 BUN 12 Creatinine 0.80 Estim Creat Clear Calc 44.44 Est GFR (MDRD) Af Amer 89 Est GFR (MDRD) Non-Af 74 BUN/Creatinine Ratio 14.9 Glucose 143 H Calcium 9.5 Troponin I High Sens 10 Urine Color Yellow Urine Clarity Sl. Cloudy Urine pH 6.0 Ur Specific [place] 1.010 Urine Protein 100 H Urine Glucose (UA) Normal Urine Ketones Negative Urine Occult Blood 250 H Urine Nitrite Negative Urine Bilirubin Negative Urine Urobilinogen Normal Ur Leukocyte Esterase 25 H Urine RBC 5-10 SEEN Urine WBC 10-25 SEEN Ur Squamous Epith Cells 0-5 SEEN Urine Bacteria 1+ Urine Mucus 0 SEEN Radiography Chest X-Ray - ED: 1 View Diagnostic Testing: Clinical Impression(s) from Imaging Studies Abdomen/Pelvis CT 04/18/22 11:15 IMPRESSION: 3.9 mm calculus in the midportion of the right ureter causing mild degree of right hydronephrosis and the perinephric stranding. 1.6 x 1.8 cm hypodense nodule in the lower pole of the right kidney as described. Correlation with ultrasound is recommended. Patchy bibasilar pulmonary infiltrates. Electronically Signed: Kalin Zuluaga MD at 12:46 EST , Chest X-Ray 04/18/22 11:30 IMPRESSION: Bibasilar infiltrates more prominent on the left side with blunting of the left costophrenic angle. Electronically Signed: Kalin Zuluaga MD at 12:16 EST , Renal Ultrasound 04/18/22 13:21 IMPRESSION: 2.1 cm x 1.4 cm x 2 0.6 mL hypoechoic solid nodule in the lower pole of the right kidney. This extends into the renal pelvis. A ureteral carcinoma should be ruled out. Electronically Signed: Kalin Zuluaga MD at 14:52 EST , 1 view chest x-ray obtained interpreted by myself as increased markings both bases. No evidence of pneumothorax. Radiology in agreement. [place] patient had bibasilar infiltrates. Infiltrates more prominent on the left. Suspect these findings may be related to her pulmonary emboli as well. EKG Initial EKG: Attestation: I personally reviewed and interpreted this EKG as follows: Comments: Sinus rhythm with a rate of 79 bpm with LVH. No other acute ST segment changes noted. Discharge Plan Triage Chief Complaint: Shortness of Breath ED Provider: Steve Brand Dx/Rx/DC Orders Clinical Impression: Urolithiasis, Kidney mass Instructions: ED Kidney Stone w/ Colic Prescriptions: New hydrocodone-acetaminophen [hydrocodone-acetaminophen] 5-325 mg tablet 1 tab PO Q4H PRN PRN (Reason: Pain) 2 Days Qty: 10 0RF ondansetron [ondansetron] 4 mg tablet,disintegrating 4 mg PO Q8H PRN PRN (Reason: Nausea) Qty: 10 0RF No Action lisinopril-hydrochlorothiazide 1 TABLET tablet 1 tab PO DAILY potassium chloride 20 MEQ tablet,ER particles/crystals 20 meq PO DAILY simvastatin 20 MG tablet 20 mg PO QHS vitamin E 400 UNIT capsule 400 unit PO DAILY cholecalciferol (vitamin D3) 1,000 UNIT capsule 1,000 unit PO DAILY duloxetine 30 MG capsule 30 mg PO QHS dwimxryy-uck-bkum-FA-lutein 1 EACH tablet 1 ea PO DAILY calcium carbonate-vitamin D3 1 EACH tablet 1 ea PO DAILY tolnaftate 30 GM cream 30 g TP DAILY PRN (Reason: Rash/Topical Irritation) ascorbic acid (vitamin C) 500 MG tablet,chewable 500 mg PO DAILY aspirin 325 MG tablet 325 mg PO DAILY@0800 Qty: 14 0RF acetaminophen 500 MG tablet 1,000 mg PO Q8 Qty: 90 0RF Xarelto DVT-PE Treat 30d Start 15 mg (42)- 20 mg (9) tablets,dose pack See Rx Instructions .ROUTE .COMPLEX Qty: 51 0RF Rx Instructions: take one-15 mg tablet twice daily for 21 days, then one-20 mg tablet once daily; must take with meal/food Primary Care Provider: Susan Potter Referrals: Susan Potter MD [Primary Care Provider] - Juan Zavala MD [Med Staff - Active Staff] - 3-5 Days Activity Restrictions/Additional Instructions: You have a mass in your right kidney and you will need to follow-up with urology for further treatment and evaluation of this mass. Disposition Disposition: Home, Self Care
--- NOTE | 2022-04-18 11:30 | RAD_ITS ---
STUDY: X-RAY CHEST REASON FOR EXAM: Female, 77 years old. Back pain TECHNIQUE: Single AP portable view of the chest. COMPARISON: None. FINDINGS: Patchy bibasilar infiltrates more prominent on the left lung base. Follow-up is recommended. Blunting of the left costophrenic angle. Normal size heart. Normal mediastinum and kaitlynn. Normal visualized pulmonary arteries. There is atherosclerotic calcification of the aortic arch with tortuosity. There are diffuse degenerative changes of the visualized thoracic spine. The patient is status post right reverse shoulder replacement. There is no demonstrated abnormality of the visualized soft tissue structures of the upper abdomen. RAD/Chest 1 View (Portable) IMPRESSION: Bibasilar infiltrates more prominent on the left side with blunting of the left costophrenic angle. Electronically Signed: Kalin Zuluaga MD at 12:16 EST ,
[2022-04-18 11:32] LABS: Absolute Lymphocyte Count 1.27 X10^3/uL (0.83-4.51); Absolute Neutrophil Count 10.9 X10^3/uL (2.0-7.7); Basophil# 0.02 X10^3/uL; Basophil% 0.2 % (0-1); Eosinophil# 0.04 X10^3/uL; Eosinophils% 0.3 % (0-5); Hematocrit 32.2 % (37-47); Hemoglobin 11.1 g/dL (12.0-15.0); Lymphocyte # 1.27 X10^3/ul (0.83-4.51); Lymphocyte % 9.6 % (19-41); Mean Corp Hgb Conc 34.5 g/dL (32-36); Mean Corpuscular Hgb 33.5 pg (27.0-32.0); Mean Corpuscular Volume 97.3 fL (81-99); Mean Platelet Vol. 10.3 fl (6.2-12.0); Monocyte# 0.87 X10^3/uL; Monocyte% 6.6 % (0-10); NRBC Flagged by Analyzer 0 % (0-5); Neutrophil % 82.8 % (47-70); Platelet Count 394 K/mm3 (150-450); RBC Distribution Width CV 11.4 % (11.6-14.6); RBC Distribution Width SD 40.9 fl (35.1-43.9); Red Blood Count 3.31 M/mm3 (4.2-5.4); White Blood Count 13.2 K/mm3 (4.4-11.0)
[2022-04-18] MEDS: 0.9% Normal Saline 1,000 ML 150 ML IV (11:43)
[2022-04-18 11:54] LABS: Anion Gap 7 (5-15); BUN 12 mg/dL (7-18); BUN/Creat Ratio 14.9 RATIO (10-20); Calcium,Total 9.5 mg/dL (8.5-10.1); Chloride 101 mmol/L (98-107); EST Glomerular Filtration Rate 74 mL/min (>60); Est Glom Filt Rate - Afr Amer 89 mL/min (>60); Estimated Creatinine Clearance 44.44 ml/min; Glucose 143 mg/dL (74-106); Potassium 3.6 mmol/L (3.5-5.1); Sodium Level 136 mmol/L (136-145); Troponin-I HS 10 pg/mL (3.0-54.0)
--- NOTE | 2022-04-18 13:21 | US_ITS ---
STUDY: RENAL ULTRASOUND - COMPLETE REASON FOR EXAM: Female, 77 years old. NODULE ON RT KIDNEY TECHNIQUE: Ultrasound evaluation of the kidneys was performed with real-time and static tobias-scale imaging. COMPARISON: Comparison made with prior CT scan the abdomen and pelvis done earlier in the day. FINDINGS: RIGHT KIDNEY: Normal location of the right kidney, which is normal in size. The right kidney measures 12.5 cm x 5.57 x 6.6 cm. There is a normal cortex of the right kidney. The renal cortex measures 2.5 cm. In the lower pole of the right kidney, there is a hypoechoic solid mass measuring 2.1 cm x 1.4 cm x 2.60 cm. This extends into the renal pelvis. A ureteral carcinoma should be ruled out. 1.1 cm x 1.1 cm x 0.9 cm cyst in the lateral aspect of the right kidney. There are no right renal calculi. There is no right hydronephrosis. DISTAL RIGHT URETER: There is non-visualization of the distal right ureter. There is no demonstrated right ureterovesical junction calculus. There is a visualized right ureteral jet. LEFT KIDNEY: Normal location of the left kidney, which is normal in size. The left kidney measures 10.9 cm x 4.9 cm x 5.4 cm. There is a normal cortex of the left kidney. The renal cortex measures 2.2 cm. There is no left renal mass or cyst. There are no left renal calculi. There is no left hydronephrosis. DISTAL LEFT URETER: There is non-visualization of the distal left ureter. There is no demonstrated left ureterovesical junction calculus. There is a visualized left ureteral jet. BLADDER: The distended urinary bladder has a volume of 33 ml. There is a normal wall thickness of the distended urinary bladder. There is no demonstrated mass within the urinary bladder. There are no demonstrated bladder calculi. US/Kidney and Bladder IMPRESSION: 2.1 cm x 1.4 cm x 2 0.6 mL hypoechoic solid nodule in the lower pole of the right kidney. This extends into the renal pelvis. A ureteral carcinoma should be ruled out. Electronically Signed: Kalin Zuluaga MD at 14:52 EST ,
[2022-04-18 13:43] LABS: Mucous, Urine 0 SEEN /hpf (<or=2+)
[2022-04-18 13:49] LABS: Color, Urine Yellow (Yellow); Glucose, Dipstick Normal (Normal); Ketone-Dipstick Negative (Negative); Leukocyte Esterase-Dipstick 25 /ul (Negative); Nitrite-Dipstick Negative (Negative); Occult Blood-Urine 250 /ul (Negative); Protein-Dipstick 100 mg/dl (Negative); Urine Bilirubin Dipstick Negative (Negative); Urine Clarity Sl. Cloudy (Clear); Urine Urobilinogen Normal (Normal)
[2022-04-18 14:00] VITALS: BP 126/78; PULSE 78; RESP 16; O2SAT 98
--- NOTE | 2022-04-18 14:01 | ED.RN ---
pt requested pain medication. orders received. pt states no i just want tylenol. meds wasted, dr bobby
[2022-04-18 14:06] LABS: Bacteria 1+ /hpf (None Seen); Red Blood Cells-Urine 5-10 SEEN /hpf (0-5); Squamous Epithelial Cells - UA 0-5 SEEN /hpf (5-10); White Blood Cells 10-25 SEEN /hpf (0-5)
[2022-04-18] MEDS: Acetaminophen 500 MG Tablet 1000 MG PO (15:14)
[2022-04-18 15:52] VITALS: BP 134/78; PULSE 78; RESP 16; TEMP 36.6; O2SAT 100
== END 2022-04-18 16:09 | disposition home or self-care (01) ==
PROVIDERS: Emergency Provider Emergency Medicine; PCP Internal Medicine; Visit Provider Emergency Medicine
DX: N13.2 Hydronephrosis with renal and ureteral calculous obstruction (principal); I10 Essential (primary) hypertension; R10.9 Unspecified abdominal pain; N28.89 Other specified disorders of kidney and ureter; R06.02 Shortness of breath
CPT/HCPCS: 71045; 74176; 76770; 80048; 81001; 84484; 85025; 93005; 96360; 96361; 99285; J7030; A4216; J2405

== ENCOUNTER → 2022-04-24 | Outpatient (CLI) | payer MEDICARE, SELFPAY ==
--- NOTE | 2022-04-24 12:28 | EKG12_ITS ---
Test Reason : PRE-OP Blood Pressure : / mmHG Vent. Rate : 086 BPM Atrial Rate : 086 BPM P-R Int : 180 ms QRS Dur : 086 ms QT Int : 382 ms P-R-T Axes : 060 -52 091 degrees QTc Int : 457 ms Sinus rhythm with Premature atrial complexes Left anterior fascicular block Left ventricular hypertrophy with repolarization abnormality Abnormal ECG Confirmed by VICKIE WOODARD, SENA ([id number]), acquisitions editor CAROLINA MCKEON ([id number]) on 04/24/2022 1:56:45 PM Referred By: ANU Confirmed By:SENA JOHNSTON MD
== END | disposition home or self-care (01) ==
PROVIDERS: PCP Internal Medicine; Visit Provider Urology
DX: Z01.810 Encounter for preprocedural cardiovascular examination (principal)
CPT/HCPCS: 93005

== ENCOUNTER → 2022-05-04 | Outpatient (CLI) | payer MEDICARE, SELFPAY ==
--- NOTE | 2022-05-04 | BLA_PTH ---
PATIENT: NICOLÁS MATIAS [facility] U#:[id number] AGE/SX: 77/F ROOM: RE05/04/[address]: Dr. Juan Zavala MD : 1945 BED: DIS: 05/04/2022 SPEC #: [id number] RECD: 05/04/22 15:08 STATUS: KATE NEWMAN #: [id number] MOSES: 05/04/22 00:[address]: Juan Zavala DEPT: SURGICAL PATHOLOGY RECD BY: Julissa Medrano ENTERED: 05/07/22 08:42 SP TYPE: BLADDER BX OTHR DR: Dr. Susan Potter MD [facility] Tissues: Urinary bladder, NOS Procedures: Surgery Specimen Level IV HEADER OPERATION: Bladder biopsy PRE-OP DIAGNOSIS: Neoplasm of right kidney TISSUE SUBMITTED: Bladder biopsy MICROSCOPIC DIAGNOSIS Bladder, biopsy: A fragment of urothelial mucosa, negative for malignancy. See comment. ANJEL:rebeca 05/08/2022 COMMENT Detrusor muscle is present in the specimen. Clinical correlation and appropriate follow up are necessary. MICROSCOPIC DESCRIPTION Slides are reviewed. GROSS DESCRIPTION Received in fixative is one container labeled with the patient's name and designated bladder biopsy. The specimen consists of one irregular fragment of light torres soft tissue that measures 0.2 x 0.2 x 0.1 cm. The specimen is totally submitted in one cassette. / ANJEL:rebeca 05/07/2022 TC:5 CPT: 08013
== END | disposition home or self-care (01) ==
LOC: LABSPEC 16:37
PROVIDERS: PCP Internal Medicine; Referring Provider Urology; Visit Provider Urology
DX: Z03.89 Encounter for observation for other suspected diseases and conditions ruled out (principal); D41.01 Neoplasm of uncertain behavior of right kidney
CPT/HCPCS: 88305

== ENCOUNTER → 2022-05-16 | Outpatient (CLI) | payer MEDICARE, SELFPAY ==
--- NOTE | 2022-05-16 13:02 | CT_ITS ---
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 This CT exam was performed using one or more of the following dose reduction techniques: automated exposure control, adjustment of the mA and/or kV according to patient size, and/or use of iterative reconstruction technique. This report was created using [employer] report generation technology. CONTRAST: IV 100mL Isovue-300 COMPARISON: 04/18/2022 FINDINGS: LOWER THORAX: Unremarkable. Lung bases are clear. No cardiomegaly. No significant pericardial effusion. ABDOMEN: LIVER: The liver is decreased in attenuation compatible with fatty infiltration. GALLBLADDER AND BILE DUCTS: Unremarkable. No calcified gallstones. No gallbladder distention or wall edema. No intra- or extrahepatic biliary ductal dilation. PANCREAS: Unremarkable. No focal cystic or solid mass. SPLEEN: Unremarkable. Normal size without focal cystic or solid mass. ADRENALS: Unremarkable. No nodules. KIDNEYS AND URETERS: There is a low-density solid-appearing mass in the lower pole of the right kidney that measures 2.0 x 1.3 x 2.0 cm suspicious for malignancy. There are fluid density structures in the right kidney compatible with cysts. No hydronephrosis. STOMACH AND BOWEL: Unremarkable. No stomach or bowel distention. No focal inflammatory change. PELVIS: APPENDIX: No evidence of acute appendicitis. BLADDER: Unremarkable. REPRODUCTIVE: Unremarkable as visualized. No mass. ABDOMEN and PELVIS: INTRAPERITONEAL SPACE: Unremarkable. No ascites or other fluid collection. No free air. BONES/JOINTS: Unremarkable. No suspicious lytic or blastic abnormality. SOFT TISSUES: Unremarkable. No discrete abdominal or pelvic wall hernia. VASCULATURE: Unremarkable. Abdominal aorta is non-dilated. LYMPH NODES: Unremarkable. No enlarged lymph nodes. CT/CT Abd/Pelvis W/WO Contrast IMPRESSION: Low-density mass in the lower pole the right kidney that appears to be solid and may represent malignancy. Further evaluation with MRI may be beneficial. Electronically Signed: Abdiaziz Agosto MD at 23:43 EST ,
== END | disposition home or self-care (01) ==
LOC: CT 13:01
PROVIDERS: PCP Internal Medicine; Referring Provider Urology; Visit Provider Urology
DX: R31.0 Gross hematuria (principal)
CPT/HCPCS: 74178; Q9967

== ENCOUNTER → 2022-11-27 | Outpatient (CLI) | payer MEDICARE, SELFPAY ==
--- NOTE | 2022-11-27 14:52 | CT_ITS ---
STUDY: CT ABDOMEN AND PELVIS WITH CONTRAST REASON FOR EXAM: Female, 77 years old. NEOPLASM OF UNCERTAIN BEHAVIOR OF RIGHT KIDNEY RADIATION DOSAGE (If Supplied By Facility): CTDIvol = ( 13.98 ) mGy, DLP = ( 563.56 ) mGycm TECHNIQUE: Transaxial images were obtained from the dome of the diaphragm to the symphysis pubis without oral contrast. IV 100mL Isovue-370 was administered. Sagittal and coronal images were reconstructed. Individualized dose optimization techniques were used for this CT. COMPARISON: Comparison is made with prior study of May 16, 2022. FINDINGS: The visualized lung bases are unremarkable. The visualized portions of the heart are within normal limits. There is decreased attenuation of the liver consistent with steatosis. Normal gallbladder and extrahepatic biliary system. Normal spleen. Normal pancreas. Normal bilateral adrenal glands. 9 mm cyst in the midportion of the right kidney. Stable 2 cm predominantly cystic nodule with a peripheral soft tissue density in the lower pole of the right kidney. Normal left kidney. There is a small hiatal hernia. Normal small intestine. Normal colon. The appendix is visualized and appears normal. There is scattered atherosclerotic calcification of the abdominal aorta, without a demonstrated aneurysm. Normal inferior vena cava. Normal retroperitoneum. Normal urinary bladder. Calcified fibroid uterus. Normal abdominal wall. Normal osseous structures. CT/Abdomen/Pelvis W IV Cont ONLY IMPRESSION: Stable examination. Electronically Signed: Kalin Zuluaga MD at 15:36 EDT ,
[2022-11-27 15:06] LABS: CREATININE FINGERSTICK < 0.9 mg/dL (0.55-1.02); EGFR FINGERSTICK > 60.0000 mL/min (>60)
== END | disposition home or self-care (01) ==
LOC: CT 14:34
PROVIDERS: PCP Internal Medicine; Referring Provider Urology; Visit Provider Urology
DX: D41.01 Neoplasm of uncertain behavior of right kidney (principal)
CPT/HCPCS: 74177; Q9967

== ENCOUNTER → 2024-04-13 | Outpatient (CLI) | payer MEDICARE, SELFPAY ==
--- NOTE | 2024-04-13 10:20 | STE_ITS ---
Reason For Study: Dyspnea Stress Results Protocol: [facility] Protocol Maximum Predicted HR: 141 bpm Target HR: 120 bpm % Maximum Predicted HR: 100 % DurationHeart Rate Stage (mm:ss) (bpm) BP Comment Baseline 69 134/72No Chest Pain; Constant Left Shoulder Ache [facility] Protocol Stage I 3:00 102 140/68No Chest Pain [facility] Protocol Stage II 3:00 120 150/68No Chest Pain [facility] Protocol Stage III 3:00 141 154/62No Chest Pain; Mild Dyspnea Recovery 89 146/70No Chest Pain Stress Duration: 9:00 mm:ss Maximum Stress HR: 141 bpm METS: 10 Baseline Echocardiogram Findings Stress Echo Wall motion Data Resting WM Intermediate WM Stress WM ECHO/Stress Test Echo w/o Contrast Interpretation Summary Exercise stress echo. 79-year-old lady with a history of chest pain. Resting EKG demonstrates sinus rhythm with a rate of 68 bpm nonspecific EKG [facility]'s blood pressure is 134/72. The patient exercised according to the regular Mihai protocol for to farhat duration of 9 minutes. The maximum heart rate attained was 142 bpm which is 100% max impacted heart rate the maximum workload was 10.1 metabolic equivalents. At rest there were no ST or T wave changes noted suggest ischemia and at peak exercise nonspecific ST changes were noted we did not meet the criteria for ischemia. No clinical angina was noted. The test was terminated due to the target heart rate achieved. The maximum blood pressure is 160/72 mmHg. Rate-pressure product was 21,700. Stress echocardiogram. The resting echocardiogram demonstrated preserved left ventricular systolic fun ction. At peak exercise there was thickening of all tristan and reduction of low ventricular cav ity size. The peak ejection fraction was 70% from 60% at rest. No new wall motion abnormalities we re noted to suggest ischemia. Conclusion: Exercise stress echocardiogram with no evidence of ischemia at a high workload. Good functional capacity. Ordering Physician: Woody Ribera Referring Physician: Woody Ribera Performed By: Brodwolf, Omar, RCS
== END | disposition home or self-care (01) ==
LOC: CVS 10:20
PROVIDERS: PCP Nurse Practitioner; Referring Provider Internal Medicine Cardiovascular Disease; Visit Provider Internal Medicine Cardiovascular Disease
DX: R06.02 Shortness of breath (principal); I10 Essential (primary) hypertension
CPT/HCPCS: 93017; 93350

== ENCOUNTER 2024-10-01 10:33 | Emergency (ER) | payer MEDICARE, SELFPAY ==
[2024-10-01 10:36] VITALS: BP 118/45; PULSE 61; RESP 17; TEMP 36.9; O2SAT 100; BMI 25.2
--- NOTE | 2024-10-01 10:58 | EX.ED.DYSGE1 ---
HPI History of Present Illness Chief Complaint: Syncope Informant: patient Onset/Context/Timing Onset: Today Context: Sudden Onset Timing: Intermittent Quality: Lightheaded Location: Generalized Worsened by: Nothing Relieved by: Nothing Narrative Narrative: Patient presents with syncopal episode that occurred today. Patient states she was volunteering at her [employer] this morning and was scrubbing something in a sink. Patient states she started feeling lightheaded and broke out into a sweat. Patient states that 2 other people caught her. Patient denies any chest pain or palpitations. Patient missed her recent cough and rhinorrhea. Patient states she has been taking Mucinex for her cough recently. Patient admits to some mild nausea but denies any vomiting. [facility] Medical History Diabetes mellitus, type II Pure hypercholesterolemia Mitral valve prolapse Generalized anxiety disorder Essential (primary) hypertension Fatigue Shoulder pain Hemorrhoids SOB (shortness of breath) Home Medications ?Medication ?Instructions ?Recorded ?Last Taken ?Type calcium 600 mg (as 1 ea PO DAILY SUPPLEMENT 04/18/17 Unknown History carbonate)-vitamin D3 10 mcg (400 unit) tablet cholecalciferol (vitamin D3) 25 1,000 unit PO DAILY SUPPLEMENT 04/18/17 Unknown History mcg (1,000 unit) capsule duloxetine 30 mg capsule,delayed 30 mg PO QHS DEPRESSION 04/18/17 Unknown History release [id number] 8 mg-folic 400 1 ea PO DAILY SUPPLEMENT 04/18/17 Unknown History mcg-K 50 mcg-lutein 300 mcg tablet potassium chloride 20 mEq 20 meq PO DAILY POTASSIUM 04/18/17 Unknown History tablet,extended release(part/cryst) simvastatin 20 mg tablet 20 mg PO QHS CHOLESTEROL 04/18/17 Unknown History vitamin E 268 mg (400 unit) capsule 400 unit PO DAILY SUPPLEMENT 04/18/17 Unknown History ascorbic acid (vitamin C) 500 mg 500 mg PO DAILY SUPPLEMENT 07/31/17 Unknown History chewable tablet tolnaftate 1 % topical cream 30 g TP DAILY PRN Rash/Topical 07/31/17 Unknown History Irritation acetaminophen 500 mg tablet 1,000 mg (2 x 500 mg) PO Q8 #90 08/15/17 Unknown Rx tabs hydrochlorothiazide 25 mg tablet 25 mg PO DAILY 12/28/22 Unknown History lisinopril 40 mg tablet 40 mg PO DAILY 12/28/22 Unknown History metoprolol succinate 25 mg 25 mg PO DAILY 12/28/22 Unknown History tablet,extended release 24 hr Allergy/AdvReac Type Severity Reaction Status Date / Time codeine AdvReac PASSED OUT Verified 03/27/24 11:20 fluoxetine (From Prozac) AdvReac Other Verified 03/27/24 11:20 prednisone AdvReac FREQ Verified 03/27/24 11:20 URINATION, INSOMNIA Family History Mother Breast cancer CHF (congestive heart failure) Hypertension Father Alcoholism Cirrhosis Sister Hypertension Polio Brother Hypertension Heart disease Surgical History History of cholecystectomy Hx of shoulder surgery Social History Smoking Status: Never smoker alcohol intake: current alcohol intake frequency: holidays/special occasions only ROS ROS ED Constitutional Constitutional ED: Reports sweats; Denies chills or fever(s) Eyes Eyes: Denies blurry vision or change in vision ENT ENT ED: Reports rhinorrhea; Denies sore throat Cardiovascular Cardiovascular: Denies chest pain or palpitations Respiratory/Chest Respiratory/Chest: Reports cough; Denies dyspnea Gastrointestinal Gastrointestinal: Reports nausea; Denies vomiting Genitourinary Genitourinary ED: Denies dysuria or hematuria Musculoskeletal Musculoskeletal: Denies back pain or neck pain Integumentary Denies abscess or rash Neurologic Neurologic: Denies headache(s) or weakness Allergic/Immunologic Allergic/Immunologic ED: Denies mouth swelling or urticaria EXAM Physical Exam Const Vital Signs: 10/01/24 10:36 10/01/24 10:40 10/01/24 12:00 Temperature 98.5 F Temperature Source Oral Pulse Rate 61 Pulse Rate [Lying] 68 Pulse Rate [Sitting (for 1 minute prior to obtaining)] 74 Pulse Rate [Standing (for 1 minute prior to obtaining)] 78 Respiratory Rate 17 Respiratory Effort Normal Non-Labored Respiratory Pattern Normal Blood Pressure 118/45 L Blood Pressure [Lying] 127/48 H Blood Pressure [Sitting (for 1 minute prior to obtaining)] 125/62 H Blood Pressure [Standing (for 1 minute prior to obtaining)] 122/57 H Blood Pressure Mean 69 Blood Pressure Mean [Lying] 74 Blood Pressure Mean [Sitting (for 1 minute prior to obtaining)] 83 Blood Pressure Mean [Standing (for 1 minute prior to obtaining)] 78 Pulse Ox 100 Oxygen Delivery Method Room Air 10/01/24 12:45 Temperature Temperature Source Pulse Rate 69 Pulse Rate [Lying] Pulse Rate [Sitting (for 1 minute prior to obtaining)] Pulse Rate [Standing (for 1 minute prior to obtaining)] Respiratory Rate 17 Respiratory Effort Respiratory Pattern Blood Pressure 138/62 H Blood Pressure [Lying] Blood Pressure [Sitting (for 1 minute prior to obtaining)] Blood Pressure [Standing (for 1 minute prior to obtaining)] Blood Pressure Mean 87 Blood Pressure Mean [Lying] Blood Pressure Mean [Sitting (for 1 minute prior to obtaining)] Blood Pressure Mean [Standing (for 1 minute prior to obtaining)] Pulse Ox Oxygen Delivery Method Room Air Positive well nourished and well developed Constitutional Narrative: BMI is 25.2. General Appearance ED: well developed and NAD HEENT Reports moist mucous membranes Neck supple and no JVD Chest Wall palpation of chest normal Resp normal respiratory effort and clear to auscultation bilaterally Cardio regular rate and regular rhythm GI non-tender and non-distended Palpation: soft Extremity normal to inspection General Extremety ED: Negative for edema or tenderness General Extremity: Negative for edema Neuro oriented x3, CN's II-XII intact bilaterally and no sensory deficits noted Sensorium / Orientation: alert Motor Exam: strength 5/5 throughout Psych mental status grossly normal MDM MDM MDM Narrative Medical decision making narrative: Differential diagnosis includes cardiac dysrhythmia, cardiac ischemia, bronchitis, pneumonia, electrolyte abnormality, dehydration, vasovagal syncope, and medication side effect. EKG will be obtained to assess for cardiac dysrhythmia and cardiac ischemia. Chest x-ray will be obtained to assess for pneumonia or bronchitis. CBC will be obtained to assess for leukocytosis and anemia. Basic metabolic profile will be obtained to assess for electrolyte abnormality and renal function. High-sensitivity troponin will be obtained to assess for cardiac ischemia. 2-hour repeat high-sensitivity troponin will be obtained to assess for ongoing cardiac ischemia. History & Record Review Additional record(s) reviewed:: Prior labs Lab Data Attestation: I reviewed the patient's lab results. Lab results narrative: CBC was reviewed. There is a mild anemia with a hemoglobin of 11.0 and hematocrit of 30.3. This was unchanged compared to previous results. Basic metabolic profile was reviewed and was essentially within normal limits with the exception of a mildly elevated glucose of 206. Initial high-sensitivity troponin was reviewed and was normal at 13. Urinalysis was reviewed. Leukocyte esterase was 100. There are 0-5 white blood cells and 0-5 epithelial cells. There is no bacteria noted. There are 50-100 hyaline casts noted. 2-hour repeat high-sensitivity troponin was reviewed and was normal at 9. Labs: Laboratory Results - last 24 hr 10/01/24 10/01/24 10/01/24 11:30 12:08 14:21 WBC 7.5 RBC 3.17 L Hgb 11.0 L Hct 30.3 L MCV 95.6 MCH 34.7 H MCHC 36.3 H RDW Std Deviation 40.9 RDW Coeff of Hi 11.7 Plt Count 189 MPV 10.4 Immature Gran % (Auto) 0.700 Neut % (Auto) 64.2 Lymph % (Auto) 24.0 Cloud % (Auto) 8.5 Eos % (Auto) 2.1 Baso % (Auto) 0.5 Absolute Neuts (auto) 4.8 Absolute Lymphs (auto) 1.80 Nucleated RBC % 0 Sodium 136 Potassium 3.9 Chloride 97 L Carbon Dioxide 25.6 Anion Gap 13 BUN 23 H Creatinine 1.15 Estim Creat Clear Calc 33.11 L Est GFR (MDRD) Non-Af 48 L BUN/Creatinine Ratio 19.8 Glucose 206 H Calcium 9.2 Troponin T High Sens 13 Troponin T Hi Sens 2 Hr 9 Urine Color Yellow Urine Clarity Clear Urine pH 6.0 Ur Specific [place] 1.010 Urine Protein 30 H Urine Glucose (UA) Normal Urine Ketones Negative Urine Occult Blood Negative Urine Nitrite Negative Urine Bilirubin Negative Urine Urobilinogen Normal Ur Leukocyte Esterase 100 H Urine RBC 0 SEEN Urine WBC 0-5 SEEN Ur Squamous Epith Cells 0-5 SEEN Urine Bacteria 0 SEEN Hyaline Casts 50-100 SEEN Urine Mucus 0 SEEN Radiography Chest X-Ray - ED: 2 View, Read by ED Physician, Read by Radiologist and No Acute Disease Diagnostic Testing: Clinical Impression(s) from Imaging Studies Chest X-Ray 10/01/24 11:42 IMPRESSION: No acute cardiopulmonary process. Reading Location: [facility] [place] and lateral chest x-ray was obtained. There are 2 views. On my independent interpretation, lung montiel are clear. There is normal cardiac silhouette. Bony thorax is normal. There is no acute process noted. Radiologist also interpreted the x-ray and agrees. EKG Initial EKG: Attestation: I personally reviewed and interpreted this EKG as follows: Interpretation: Sinus Rhythm (64) and Non-Specific ST Changes Comments: EKG was obtained. On my independent interpretation, it showed a normal sinus rhythm with a rate of 64. PA interval, QRS interval, and QTc intervals were all normal. There is left axis deviation at -52. There is left ventricular hypertrophy with nonspecific ST-T wave changes. Prior EKG tracings: available for review Prior: Unchanged (04/24/2022) Treatment and Re-Evaluation :: Patient was advised of her findings. Patient is feeling better on reevaluation. Patient is low risk according to [place] syncope rules. Patient was instructed to follow-up with her primary care physician in 5 to 7 days. Patient was instructed to return if worse in any way. Patient understood and was agreeable with the plan. All questions were answered. Discharge Plan Triage Chief Complaint: Syncope ED Provider: Junior Pacheco Dx/Rx/DC Orders Clinical Impression: Syncope and collapse, Diabetes mellitus, type II, Essential (primary) hypertension Instructions: ED Fainting, Uncertain Cause Prescriptions: No Action lisinopril 40 mg tablet 40 mg PO DAILY hydrochlorothiazide 25 mg tablet 25 mg PO DAILY metoprolol succinate 25 mg tablet extended release 24 hr 25 mg PO DAILY potassium chloride 20 MEQ tablet,ER particles/crystals 20 meq PO DAILY simvastatin 20 MG tablet 20 mg PO QHS vitamin E 400 UNIT capsule 400 unit PO DAILY cholecalciferol (vitamin D3) 1,000 UNIT capsule 1,000 unit PO DAILY duloxetine 30 MG capsule 30 mg PO QHS [id number]-vit K-lut 1 EACH tablet 1 ea PO DAILY calcium carbonate-vitamin D3 1 EACH tablet 1 ea PO DAILY tolnaftate 30 GM cream 30 g TP DAILY PRN (Reason: Rash/Topical Irritation) ascorbic acid (vitamin C) 500 MG tablet,chewable 500 mg PO DAILY acetaminophen 500 MG tablet 1,000 mg PO Q8 Qty: 90 0RF Primary Care Provider: KVNG JACOBSON Referrals: KVNG JACOBSON NP-C [Primary Care Provider] - 5-7 Days Print Language: Liberian Disposition Disposition: Home, Self Care
[2024-10-01 11:36] LABS: Hematocrit 30.3 % (37-47); Hemoglobin 11.0 g/dL (12.0-15.0); Immature Granulocytes Count 0.050 X10^3/uL (0.0-0.0); Mean Corp Hgb Conc 36.3 g/dL (32-36); Mean Corpuscular Volume 95.6 fL (81-99); Mean Platelet Vol. 10.4 fl (6.2-12.0); NRBC Flagged by Analyzer 0 % (0-5); Platelet Count 189 K/mm3 (150-450); RBC Distribution Width CV 11.7 % (11.6-14.6); RBC Distribution Width SD 40.9 fl (35.1-43.9); Red Blood Count 3.17 M/mm3 (4.2-5.4); White Blood Count 7.5 K/mm3 (4.4-11.0)
--- NOTE | 2024-10-01 11:42 | RAD_ITS ---
EXAM: XR Chest, 2 Views CLINICAL INDICATION: COUGH TECHNIQUE: Frontal and lateral views of the chest. COMPARISON: No relevant prior studies available. FINDINGS: LUNGS AND PLEURAL SPACES: Unremarkable. No consolidation. No pneumothorax. HEART: Unremarkable. No cardiomegaly. MEDIASTINUM: Unremarkable. Normal mediastinal contour. BONES/JOINTS: Unremarkable. No acute fracture. RAD/Chest PA and Lateral IMPRESSION: No acute cardiopulmonary process. Reading [facility]
[2024-10-01 11:57] LABS: Anion Gap 13 (5-15); BUN 23 mg/dL (4-19); BUN/Creat Ratio 19.8 RATIO (10-20); Calcium,Total 9.2 mg/dL (7.6-11.0); Carbon Dioxide 25.6 mmol/L (21.0-32.0); Chloride 97 mmol/L (98-108); Estimated Creatinine Clearance 33.11 ml/min (50-250); Glucose 206 mg/dL (70-99); Potassium 3.9 mmol/L (3.3-5.1); Troponin T High Sensitivity 13 ng/L (<=14)
[2024-10-01 12:00] VITALS: BP 122/57; BP 125/62; BP 127/48; PULSE 68; PULSE 74; PULSE 78
[2024-10-01 12:12] LABS: Mucous, Urine 0 SEEN /hpf (<or=2+); Red Blood Cells-Urine 0 SEEN /hpf (0-5)
[2024-10-01 12:19] LABS: Color, Urine Yellow (Yellow); Glucose, Dipstick Normal (Normal); Ketone-Dipstick Negative (Negative); Leukocyte Esterase-Dipstick 100 /ul (Negative); Nitrite-Dipstick Negative (Negative); Occult Blood-Urine Negative /ul (Negative); Protein-Dipstick 30 mg/dl (Negative); Specific Gravity, Urine 1.010 (1.002-1.030); Urine Bilirubin Dipstick Negative (Negative)
[2024-10-01 12:24] LABS: Squamous Epithelial Cells - UA 0-5 SEEN /hpf (5-10)
[2024-10-01 12:45] VITALS: BP 138/62; PULSE 69; RESP 17
[2024-10-01 15:01] LABS: Troponin T High Sens 2 HR 9 ng/L (<=14)
[2024-10-01 15:26] VITALS: BP 101/67; PULSE 70; RESP 12; TEMP 36.6; O2SAT 99
== END 2024-10-01 15:27 | disposition home or self-care (01) ==
PROVIDERS: Emergency Provider Emergency Medicine; PCP Nurse Practitioner; Visit Provider Emergency Medicine
DX: R55 Syncope and collapse (principal); E11.9 Type 2 diabetes mellitus without complications; D64.9 Anemia, unspecified; I10 Essential (primary) hypertension; F41.1 Generalized anxiety disorder; E78.00 Pure hypercholesterolemia, unspecified; Z79.899 Other long term (current) drug therapy
CPT/HCPCS: 71046; 80048; 81001; 84484; 85025; 93005; 99285